=== PATIENT | female | born 1975 | race Hispanic/Latino ===

== ENCOUNTER 2016-11-07 11:30 | Emergency (ER) | payer OTHER ==
[~2016-11-07] VITALS: Ht 152.4 cm; Wt 68.0 kg
[~2016-11-07 11:30] MED LIST: ACHD5005 PO; ASPI-266 PO; FERR-57 PO; FRS325T PO; GLYB2.5T4 PO; IBP600T1 PO; PREN1TAB71 PO
--- OUTSIDE RECORDS SUMMARY | 2016-11-07 11:36 | XMS REPORT | Continuity of Care Document ---
Author Author [facility] Organization [facility] Address Unknown Phone Unavailable Care Team Providers Care Spanish Speaking Nanny Name Role Phone LAURENCE AHMADI DO PCP Insurance Providers Payer Name Policy Number Subscriber Name Relationship Self Pay Gaurav Lawson 18 Self / Same As Patient Advance Directives Directive Response Recorded Date/Time Advance Directives No 02/23/15 7:15am Health Care Power of Ore Dryer No 02/23/15 7:15am Organ Donor No 02/23/15 7:15am Resuscitation Status Full Code 02/23/15 7:15am Problems No known problems or medical conditions. Medications Medication Dose Route Sig Days/Qty Instructions Order Date Discontinued Date Status Ferrous Sulfate 325 Mg PO THREE TIMES A DAY 02/23/15 02/26/15 Discontinued Glyburide (Micronase) 1 Each PO DAILY 02/23/15 02/26/15 Discontinued Aspirin 81 Mg PO DAILY 02/23/15 02/26/15 Discontinued Vit/Fe Fumarate/Fa 1 Each PO DAILY 02/23/15 Active Acetaminophen/Hydrocodone Bitart (Hydrocodone/APAP 5/325mg) 1-2 Tab PO EVERY 6 HOURS PRN PAIN 50 Qty 02/26/15 Active Ibuprofen 600 Mg PO EVERY 6 HOURS PRN PAIN 60 Qty 02/26/15 Active Ferrous Sulfate 325 Mg PO TWICE A DAY WITH MEALS 120 Qty 02/26/15 Active Social History Social History Problem Response Recorded Date/Time Alcohol Use Denies Use 02/23/2015 9:52am Recreational Drug Use No 02/23/2015 9:52am Recent Foreign Travel No 02/23/2015 9:52am Recent Infectious Disease Exposure No 02/23/2015 9:52am Hospitalization with Isolation Denies 02/27/2015 12:40am Sexually Transmitted Disease No 02/23/2015 9:52am HIV/AIDS No 02/23/2015 9:52am Smoking Status Former Smoker 02/23/2015 9:26am Do you dip or chew tobacco? No 02/23/2015 9:26am Query Response Start Date Stop Date Smoking Status Former Smoker 08/29/2014 Hospital Discharge Instructions Patient Instructions Physician Instructions New, Converted or Re-Newed RX: RX on Chart Additional Follow Up: Yes Orders/Referrals Follow up with Dr. Ahmadi next Tuesday for staple removal and incision check. Dr. Durand in 6 weeks. Activity: Activity as Tolerated Driving Instructions: No Driving for 1 Week NO SMOKING: NO SMOKING Nothing Inside Vagina: No Douching, No [place], No Tampons Discharge Diet: No Restrictions, Avoid Fatty Foods Symptoms to Report to : Bleeding Excessive, Pain Increased, Fever Over 101 Degrees F, Vaginal Bleeding Increase, Questions/Concerns, Dizziness/Fainting For Any Problems or Questions: Contact Your Physician Infection Signs and Symptoms: Increased Redness, Foul Odor of Wound, Increased Drainage, Skin Itchy or Has a Rash, Increased Swelling, Temperature Above 101 F Operative Area Clean and Dry: Keep Incision Clean/Dry Stitches/[place]/Dermabond: Care of [place] Bathing Instructions: Shower Plan of Care Discharge Date 02/26/15 11:50pm Disposition 30 STILL A PATIENT Instructions/Education Provided DISCHARGE SECTION DISCHARGE Abdominal Hysterectomy (DC) Forms Provided PDI Prescriptions See Medications Section Functional Status No functional status results. Allergies, Adverse Reactions, Alerts Allergen Type Severity Reaction Status Last Updated No Known Drug Allergies Active 02/23/15 Immunizations Name Given Type Date of Influenza Vaccine 08/12/14 Historical Hepatitis A No Historical Hepatitis B Yes Historical Tetanus Booster (TDap) Less than 5yrs Historical Vital Signs Acute Vital Signs Vital Response Date/Time Temperature (Fahrenheit) 98.2 degrees F (97.6 - 99.5) Temperature (Calculated Celsius) 36.06066 degrees C (36.4 - 37.5) Temperature Source Tympanic Pulse Rate (adult) 75 bpm (60 - 90) Respiratory Rate 18 bpm (12 - 24) O2 Sat by Pulse Oximetry 98 % (88 - 100) Blood Pressure 100/62 mm Hg Pain Pain Intensity 0 Height (Feet) 5 feet Height (Inches) 0.00 inches Height (Calculated Centimeters) 152.403958 cm Weight (Pounds) 175 pounds Weight (Calculated Grams) 71307.666 gm Weight (Calculated Kilograms) 79.255954 kilograms Calculated BMI 34.17 Results Laboratory Results Test Name Result Units Flags Reference Collection Date/Time Result Date/ Time Comments White Blood Count 11.2 10^3/uL H 4.3-11.0 02/26/2015 1:20pm 02/26/2015 1: 46pm Red Blood Count 3.79 10^6/uL L 4.35-5.85 02/26/2015 1:20pm 02/26/2015 1: 46pm Hemoglobin 9.3 G/DL #L 11.5-16.0 02/26/2015 1:20pm 02/26/2015 1:46pm Hematocrit 29 % L 35-52 02/26/2015 1:20pm 02/26/2015 1:46pm Mean Corpuscular Volume 76 FL L 80-99 02/26/2015 1:20pm 02/26/2015 1: 46pm Mean Corpuscular Hemoglobin 25 PG 25-34 02/26/2015 1:20pm 02/26/2015 1: 46pm Mean Corpuscular Hemoglobin Concent 32 G/DL 32-36 02/26/2015 1:20pm 08/2014 1:46pm Red Cell Distribution Width 20.8 % H 10.0-14.5 02/26/2015 1:20pm 2014 1:46pm Platelet Count 148 10^3/uL 130-400 02/26/2015 1:20pm 02/26/2015 1:46pm Mean Platelet Volume 12.2 FL H 7.4-10.4 02/26/2015 1:20pm 02/26/2015 1: 46pm Neutrophils (%) (Auto) 69 % 42-75 02/26/2015 1:20pm 02/26/2015 1:46pm Lymphocytes (%) (Auto) 24 % 12-44 02/26/2015 1:20pm 02/26/2015 1:46pm Monocytes (%) (Auto) 5 % 0-12 02/26/2015 1:20pm 02/26/2015 1:46pm Eosinophils (%) (Auto) 2 % 0-10 02/26/2015 1:20pm 02/26/2015 1:46pm Basophils (%) (Auto) 0 % 0-10 02/26/2015 1:20pm 02/26/2015 1:46pm Neutrophils # (Auto) 7.7 X 10^3 1.8-7.8 02/26/2015 1:20pm 02/26/2015 1: 46pm Lymphocytes # (Auto) 2.7 X 10^3 1.0-4.0 02/26/2015 1:20pm 02/26/2015 1: 46pm Monocytes # (Auto) 0.5 X 10^3 0.0-1.0 02/26/2015 1:20pm 02/26/2015 1: 46pm Eosinophils # (Auto) 0.3 10^3/uL 0.0-0.3 02/26/2015 1:20pm 02/26/2015 1 :46pm Basophils # (Auto) 0.0 10^3/uL 0.0-0.1 02/26/2015 1:20pm 02/26/2015 1: 46pm Neutrophils % (Manual) 76 % 02/23/2015 8:02/23/2015 9:49am Band Neutrophils 18 % 02/23/2015 8:02/23/2015 9:49am Lymphocytes % (Manual) 2 % 02/23/2015 8:02/23/2015 9:49am Monocytes % (Manual) 3 % 02/23/2015 8:02/23/2015 9:49am Eosinophils % (Manual) 0 % 02/23/2015 8:02/23/2015 9:49am Basophils % (Manual) 0 % 02/23/2015 8:02/23/2015 9:49am Metamyelocytes % 1 % 02/23/2015 8:02/23/2015 9:49am Nucleated Red Blood Cells 1 02/23/2015 8:02/23/2015 9:49am Polychromasia SLIGHT 02/23/2015 8:02/23/2015 9:49am Anisocytosis MARKED 02/23/2015 8:02/23/2015 9:49am Microcytosis MARKED 02/23/2015 8:11am 02/23/2015 9:49am Tear Drop Cells MODERATE 02/23/2015 8:11am 02/23/2015 9:49am Elliptocytes MODERATE 02/23/2015 8:11am 02/23/2015 9:49am Prothrombin Time 11.8 SEC L 12.2-14.7 02/26/2015 7:37am 02/26/2015 7: 59am INR Comment 0.9 0.8-1.4 02/26/2015 7:37am 02/26/2015 7:59am INTERPRETIVE DATA SUGGESTED THERAPEUTIC RANGE FOR INR'S: VENOUS THROMBOSIS, PULMONARY EMBOLISM, OR PREVENTION OF SYSTEMIC EMBOLISM (EG. IN ATRIAL FIBRILLATION): 2.0 - 3.0 MECHANICAL PROSTHETIC HEART VALVES: 2.5 - 3.5* *NOTE: INR'S UP TO 4.5 MAY BE NECESSARY IN SELECTED GROUPS OF HIGH RISK PATIENTS. [employer] CONSENSUS CONFERENCE ON ANTITHROMBOTIC THERAPY (2000). Fibrinogen 514 MG/DL H 221-496 02/26/2015 7:37am 02/26/2015 8:33am Urine Color YELLOW 02/23/2015 7:20am 02/23/2015 8:07am Urine Clarity CLEAR 02/23/2015 7:20am 02/23/2015 8:07am Urine pH 6 5-9 02/23/2015 7:20am 02/23/2015 8:07am Urine Specific Bear 1.020 1.016-1.022 02/23/2015 7:20am 2014 8:07am Urine Protein 2+ * NEGATIVE 02/23/2015 7:2002/23/2015 8:07am Urine Glucose (UA) NEGATIVE NEGATIVE 02/23/2015 7:20am 02/23/2015 8: 07am Urine RBC (Auto) 4+ * NEGATIVE 02/23/2015 7:20am 02/23/2015 8:07am Urine Ketones NEGATIVE NEGATIVE 02/23/2015 7:20am 02/23/2015 8:07am Urine Nitrite NEGATIVE NEGATIVE 02/23/2015 7:20am 02/23/2015 8:07am Urine Bilirubin NEGATIVE NEGATIVE 02/23/2015 7:20am 02/23/2015 8: 07am Urine Urobilinogen NORMAL MG/DL NORMAL 02/23/2015 7:20am 02/23/2015 8: 07am Urine Leukocyte Esterase 1+ * NEGATIVE 02/23/2015 7:20am 02/23/2015 8: 07am Urine RBC 0-2 /HPF 02/23/2015 7:2002/23/2015 8:07am Urine WBC 0-2 /HPF 02/23/2015 7:20am 02/23/2015 8:07am Urine Bacteria TRACE /HPF 02/23/2015 7:20am 02/23/2015 8:07am Urine Squamous Epithelial Cells 25-50 /HPF * 02/23/2015 7:20am 2014 8:07am Urine Crystals NONE /LPF 02/23/2015 7:20am 02/23/2015 8:07am Urine Casts NONE /LPF 02/23/2015 7:20am 02/23/2015 8:07am Urine Mucus NEGATIVE /LPF 02/23/2015 7:20am 02/23/2015 8:07am Urine Culture Indicated NO 02/23/2015 7:2002/23/2015 8:07am Sodium Level 139 MMOL/L 135-145 02/23/2015 8:02/23/2015 9:36am Potassium Level 3.8 MMOL/L 3.6-5.0 02/23/2015 8:02/23/2015 9:36am Chloride Level 112 MMOL/L H 98-107 02/23/2015 8:02/23/2015 9:36am Carbon Dioxide Level 17 MMOL/L L 21-32 02/23/2015 8:02/23/2015 9: 36am Blood Urea Nitrogen 8 MG/DL 7-18 02/23/2015 8:02/23/2015 9:36am Creatinine 0.57 MG/DL L 0.60-1.30 02/23/2015 8:02/23/2015 9:36am BUN/Creatinine Ratio 14 02/23/2015 8:02/23/2015 9:36am Estimat Glomerular Filtration Rate > 60 02/23/2015 8:2014 9:36am GFR INTERPRETIVE DATA UNITS FOR ESTIMATED GFR (eGFR): mL/min/1.73 M2 REFERENCE RANGE FOR ESTIMATED GFR (eGFR) eGFR NORMAL eGFR >60 MODERATELY DECREASED eGFR 30-59 SEVERLY DECREASED eGFR 15-29 KIDNEY FAILURE <15 (OR DIALYSIS) Glucose Level 71 MG/DL 70-105 02/23/2015 8:11a02/23/2015 9:36am Glucometer 121 MG/DL H 70-110 02/25/2015 9:57pm 02/25/2015 10:05pm Calcium Level 8.9 MG/DL 8.5-10.1 02/23/2015 8:11a02/23/2015 9:36am Total Bilirubin 0.6 MG/DL 0.1-1.0 02/23/2015 8:11a02/23/2015 9:36am Alkaline Phosphatase 193 U/L H 40-136 02/23/2015 8:11a02/23/2015 9: 36am Aspartate Amino Transf (AST/SGOT) 20 U/L 5-34 02/23/2015 8:2014 9:36am Alanine Aminotransferase (ALT/SGPT) 11 U/L 0-55 02/23/2015 8:11a02/23 9:36am Total Protein 6.5 G/DL 6.4-8.2 02/23/2015 8:02/23/2015 9:36am Albumin 3.0 G/DL L 3.2-4.5 02/23/2015 8:11a02/23/2015 9:36am Procedures Procedure Status Date Provider(s) section completed 02/23/15 LAURENCE AHMADI DO Exploratory laparotomy completed 02/23/15 LAURENCE AHMADI DO Encounters Encounter Location Date/Time Discharged Inpatient Via [facility] 02/23/15 4:28pm
[2016-11-07] MEDS ORDERED: VALA10004 PO (12:04)
[2016-11-07] MEDS ORDERED: TRAM-42 PO (12:04)
[2016-11-07] MEDS ORDERED: AMOX-358 PO (12:04)
[2016-11-07] MEDS ORDERED: ACYC30OI TP (12:04)
--- NOTE | 2016-11-07 12:07 | ED EENT ---
History of Present Illness General Chief Complaint: Facial Problems Stated Complaint: R SIDE FACE SWELLING/SORE ON LIP Nursing Triage Note: PT REPORTS THAT SHE HAD A R LOWER MOLAR EXTRACTED UNDER LOCAL ANESTHETIC ON Tuesday11/04/16, AND HAS HAD R SIDED FACIAL PAIN WITH INTERMITTENT NUMBNESS SINCE. SHE ALSO REPORTS WHAT APPEARS TO BE A COLD SORE TO HER R UPPER LIP. Source: patient (VIA LARD RENDERER ( DAUGHTER) ), debt collection specialist (DAUGHTER) History of Present Illness Time seen by provider: 11:50 Initial Comments C/O RIGHT SIDED FACIAL PAIN SINCE HAVING A RIGHT LOWER MOLAR PULLED ON Tuesday11/04/16 AT [facility] PT ALSO DEVELOPED A SORE ON RIGHT UPPER LIP THE SAME DAY. NOW IS STARTING TO GET ANOTHER ONE ON MID UPPER LIP--HAS HAD SIMILAR IN THE PAST HAS NOT BEEN ON ANY ANTIBIOTICS RECENTLY HAS HAD SUBJECTIVE FEVER NO OTHER SYMPTOMS PCP: [facility] Allergies and Home Medications Allergies Coded Allergies: No Known Drug Allergies (Unverified , 02/23/15) Home Medications Acyclovir 30 Gm Oint #1 30 GM TP Q4H Prescribed by: JACQUI GREENE on 11/07/16 1204 Amoxicillin/Potassium Clav 1 Each Tablet #20 1 EACH PO BID Prescribed by: JACQUI GREENE on 11/07/16 1204 Ferrous Sulfate 325 Mg Tab #120 325 MG PO BID WITH MEALS Prescribed by: LAURENCE JACKSON on 02/26/15 0734 Hydrocodone Bit/Acetaminophen 1 Tab Tab #50 1-2 TAB PO Q6H PRN PRN PAIN Prescribed by: LAURENCE JACKSON on 02/26/15 0734 Ibuprofen 600 Mg Tab #60 600 MG PO Q6H PRN PRN PAIN Prescribed by: LAURENCE JACKSON on 02/26/15 0734 Vit/Fe Fumarate/Fa 1 Each Tablet 1 EACH PO DAILY (Reported) Tramadol HCl 50 Mg Tablet #20 50 MG PO Q4H Prescribed by: JACQUI GREENE on 11/07/16 1204 Valacyclovir HCl 1,000 Mg Tablet #30 1,000 MG PO TID Prescribed by: JACQUI GREENE on 11/07/16 1204 Review of Systems Constitutional: see HPI Eyes: No Symptoms Reported Ears: No Symptoms Reported Nose: no symptoms reported Mouth: see HPI Throat: no symptoms reported Respiratory: no symptoms reported Cardiovascular: no symptoms reported Gastrointestinal: no symptoms reported Musculoskeletal: no symptoms reported Skin: see HPI Neurological: No Symptoms Reported Hematologic/Lymphatic: No Symptoms Reported Immunological/Allergic: no symptoms reported Past Qrgzbnz-Yumisk-Puflxl Hx Patient Social History Alcohol Use: Denies Use Recreational Drug Use: No Smoking Status: Current Everyday Smoker Type Used: Cigarettes 2nd Hand Smoke Exposure: No Recent Foreign Travel: No Contact w/Someone Who Travel: No Recent Infectious Disease Expo: No Recent Hopitalizations: No Immunizations Up To Date Tetanus Booster (TDap): Less than 5yrs PED Vaccines UTD: Yes Date of Influenza Vaccine: Aug 12, 2014 Surgeries HX Surgeries: Yes (TEETH PULLED) Surgeries: Section Respiratory Hx Respiratory Disorders: No Cardiovascular Hx Cardiac Disorders: No Neurological Hx Neurological Disorders: No Reproductive System Hx Reproductive Disorders: No Sexually Transmitted Disease: No HIV/AIDS: No Female Reproductive Disorders: Denies Genitourinary Hx Genitourinary Disorders: No Gastrointestinal Hx Gastrointestinal Disorders: No Musculoskeletal Hx Musculoskeletal Disorders: No Endocrine Hx Endocrine Disorders: No Endocrine Disorders: Diabetes, Non-Insulin dep HEENT HX ENT Disorders: No Loss of Vision: Denies Hearing Impairment: Denies Cancer Hx Cancer: No Psychosocial Hx Psychiatric Problems: No Integumentary HX Skin/Integumentary Disorder: No Blood Transfusions Hx Blood Disorders: Yes (ANEMIA) Adverse Reaction to a Blood Tr: No Family Medical History Family Medial History: Deafness or hearing loss DAUGHTER Diabetes mellitus G8 SISTER (IDDM AGE 35 YR) Drug abuse G8 BROTHER Kidney disease G8 SISTER Seizure disorder DAUGHTER No Family History of: AIDS Abdominal aortic aneurysm Luca's disease Alcoholism Alzheimer's disease Aphasia Arthritis Asthma Cancer of mouth Cardiovascular disease Cataracts Colon cancer Completed stroke Congenital disease Congenital heart disease Coronary thrombosis Cystic fibrosis Dementia Dysphasia Fibrocystic disease of breast Gastroenteritis Glaucoma Headache disorder Hypercholesterolemia Hypertension Infertility Myocardial infarction Neoplasm Not obtainable due to adoption Osteoporosis Parkinson's disease Prostate cancer Psychosocial problem Respiratory disorder Severe allergy Thyroid disease Tuberculosis Visual disorder Physical Exam Vital Signs Vital Sign - Last 12Hours 11/07/16 11:35 Temp 97.9 Pulse 52 Resp 16 B/P 128/65 Pulse Ox 98 O2 Delivery Room Air General Appearance: WD/WN no apparent distress Eyes: bilateral eye EOMI, bilateral eye PERRL, bilateral eye normal inspection Ears: bilateral ear TM normal, bilateral ear auricle normal, bilateral ear canal normal Nose: normal inspection Mouth/Throat: other (DENTAL EXTRACTION SITE TO RIGHT LOWER MOLAR APPEARS TO HAVE NORMAL POST EXTRACTION APPEARANCE. NO GUM SWELLING OR ERYTHEMA. NO DRAINAGE. RIGHT SIDE OF FACE SLIGHTLY TENDER, BUT NO EVIDENCE OF SWELLING. 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 Referrals: [facility] Patient Instructions: Cold Sores (Oral Herpes) (DC), Dental Pain (DC) Add. Discharge Instructions: ICE TO AREA AT 20 MINUTE INTERVALS LOTS OF CLEAR LIQUIDS FOLLOW UP WITH [facility] IN 2-3 DAYS IF NO BETTER All discharge instructions reviewed with patient and/or family. Voiced understanding. Scripts Acyclovir (Zovirax)30 Gm Oint30 Gm TP Q4H #1 TUBE Prov:JACQUI GREENE DO 11/07/16 Valacyclovir HCl (Valtrex)1,000 Mg Tablet1,000 Mg PO TID #30 TAB Prov:JACQUI GREENE DO 11/07/16 Tramadol HCl (Ultram)50 Mg [id number] Mg PO Q4H #20 TAB Prov:JACQUI GREENE DO 11/07/16 Amoxicillin/Potassium Clav (Augmentin 875-125 Tablet)1 Each Tablet1 Each PO BID INFECTION #20 TAB Prov:JACQUI GREENE DO 11/07/16 JACQUI GREENE DO Nov 07, 2016 12:06
[2016-11-07 12:47] VITALS: BP 128/65
== END 2016-11-07 12:47 | disposition home or self-care (01) ==
LOC: EDUNIT# 11:30 → ER 11:32
DX: G89.18 Other acute postprocedural pain (principal); B00.1 Herpesviral vesicular dermatitis; F17.210 Nicotine dependence, cigarettes, uncomplicated
CPT/HCPCS: 99283

== ENCOUNTER → 2018-08-04 | Outpatient (CLI) | payer OTHER ==
[~2018-08-04] MED LIST changes: +ACYC30OI TP; +AMOX-358 PO; +IOHEXOL 350 MG/ML 100 ML (OMNIPAQUE 350) VIAL IV ONE; +NS 250 ML (IVPB) BAG IV ONE; +RECEIVED CONTRAST (Hold Metformin) IV SCH; +TRAM-42 PO; +VALA10004 PO
--- NOTE | 2018-08-04 09:37 | Diagnostic Imaging Report ---
PROCEDURE: CT abdomen and pelvis with contrast. TECHNIQUE: Multiple contiguous axial images were obtained through the abdomen and pelvis after administration of intravenous contrast. INDICATION: Abdominal pain for one week. COMPARISON: Comparison is made with prior CT from 02/22/2012. FINDINGS: There is some linear scarring or atelectasis in the lingula. There is also some minimal infiltrate or atelectasis in the right lower lobe posteriorly. There are several low densities throughout the liver, largest in the right lobe anteriorly which appears to be somewhat bilobed measuring 2.3 x 1.6 cm. This has the appearance of cysts. Cysts have increased in size since the CT from 2011. The gallbladder is unremarkable. No biliary ductal dilatation is seen. Pancreas and spleen are unremarkable. No adrenal mass is detected. The kidneys are unremarkable. Aorta is non-aneurysmal. No central retroperitoneal or mesenteric lymphadenopathy is identified. The small and large bowel loops are normal in caliber. There is no ascites. The bladder is unremarkable. No pelvic lymphadenopathy is seen. IMPRESSION: 1. Hepatic cysts. 2. No acute feature in the abdomen or pelvis is identified. Dictated by: Dictated on workstation # [id number]
== END ==
LOC: RAD 08:44
PROVIDERS: ATTEND Nurse Practitioner Family
DX: K76.89 Other specified diseases of liver (principal); D64.9 Anemia, unspecified
CPT/HCPCS: 74177

== ENCOUNTER 2018-09-27 21:51 | Emergency (ER) | payer SELFPAY ==
[~2018-09-27] VITALS: Ht 152.4 cm; Wt 68.0 kg
[~2018-09-27 21:51] MED LIST changes: -IOHEXOL 350 MG/ML 100 ML (OMNIPAQUE 350) VIAL IV ONE; -NS 250 ML (IVPB) BAG IV ONE; -RECEIVED CONTRAST (Hold Metformin) IV SCH
--- NOTE | 2018-09-27 22:04 | ED GU-Female ---
General Chief Complaint: Abdominal/GI Problems Stated Complaint: LOWER ABD PAIN Nursing Triage Note: lower abdominal pain Nursing Sepsis Screen: No Definite Risk Source: patient, family Exam Limitations: language barrier (Bengali as a second language. Interpretation by family) History of Present Illness Date Seen by Provider: Sep 27, 2018 Time Seen by Provider: 21:53 Initial Comments Patient presents to ER by private conveyance with chief complaint for the past 3 -4 months she's been having some intermittent bilateral pain in her illness. Right now it is more in the left than right. She also has some suprapubic pain and discomfort when she urinates. She's had no fevers chills nausea vomiting. She's been using ibuprofen which usually helps but not so much today. This latest episode been going on for 1 day. She had a hysterectomy secondary to bleeding complications after with her last child. She does not follow with a ultrasound technol that she has seen Dr. Price outpatient for this and imaging was ordered demonstrating the patient had ovarian cysts. She's had no other abdominal surgeries. Allergies and Home Medications Allergies Coded Allergies: No Known Drug Allergies (Unverified , 02/23/15) Patient Home Medication List Home Medication List Reviewed: Yes Review of Systems Review of Systems Constitutional: No chills, No diaphoresis EENTM: No ear discharge, No ear pain Respiratory: No cough, No short of breath Cardiovascular: No chest pain, No edema Gastrointestinal: LLQ, see HPI, abdominal pain; No constipation (last bowel movement was this morning.), No diarrhea, No nausea Genitourinary: denies discharge, denies dysuria : No Musculoskeletal: No back pain, No joint pain Skin: No pruritus, No rash Past Dbltefs-Jjzors-Vprdua Hx Patient Social History Alcohol Use: Denies Use Recreational Drug Use: No Smoking Status: Current Everyday Smoker Type Used: Cigarettes 2nd Hand Smoke Exposure: No Recent Foreign Travel: No Contact w/Someone Who Travel: No Recent Infectious Disease Expo: No Recent Hopitalizations: No Immunizations Up To Date Tetanus Booster (TDap): Less than 5yrs PED Vaccines UTD: Yes Date of Influenza Vaccine: Aug 12, 2014 Seasonal Allergies Seasonal Allergies: No Past Medical History Surgeries: Yes (TEETH PULLED) Section, Hysterectomy Respiratory: No Cardiac: No Neurological: No : No Reproductive Disorders: No Female Reproductive Disorders: Denies QA TESTER History: Hysterectomy Sexually Transmitted Disease: No HIV/AIDS: No Genitourinary: No Gastrointestinal: No Musculoskeletal: No Endocrine: No Diabetes, Non-Insulin dep HEENT: No Loss of Vision: Denies Hearing Impairment: Denies Cancer: No Psychosocial: No Integumentary: No Blood Disorders: Yes (ANEMIA) Adverse Reaction/Blood Tranf: No Family Medical History Deafness or hearing loss DAUGHTER Diabetes mellitus G8 SISTER (IDDM AGE 35 YR) Drug abuse G8 BROTHER Kidney disease G8 SISTER Seizure disorder DAUGHTER No Family History of: AIDS Abdominal aortic aneurysm [place]'s disease Alcoholism Alzheimer's disease Aphasia Arthritis Asthma Cancer of mouth Cardiovascular disease Cataracts Colon cancer Completed stroke Congenital disease Congenital heart disease Coronary thrombosis Cystic fibrosis Dementia Dysphasia Fibrocystic disease of breast Gastroenteritis Glaucoma Headache disorder Hypercholesterolemia Hypertension Infertility Myocardial infarction Neoplasm Not obtainable due to adoption Osteoporosis Parkinson's disease Prostate cancer Psychosocial problem Respiratory disorder Severe allergy Thyroid disease Tuberculosis Visual disorder Physical Exam Vital Signs Vital Signs - First Documented 09/27/18 21:54 Temp 96.3 Pulse 69 Resp 16 B/P (MAP) 137/78 (97) Pulse Ox 99 O2 Delivery Room Air Capillary Refill : Less Than 3 Seconds Height, Weight, BMI Height: 5'0.00" Weight: 150lbs. oz. 68.259507ce; 34.17 BMI Method:Estimated General Appearance: WD/WN, no apparent distress HEENT: PERRL/EOMI, pharynx normal Neck: non-tender, full range of motion, normal inspection Cardiovascular: normal peripheral pulses, regular rate, rhythm, no edema Respiratory: no respiratory distress, no accessory muscle use Gastrointestinal: normal bowel sounds, soft, tenderness (left lower quadrant mild tenderness to palpation) Extremities: no pedal edema, no calf tenderness, normal capillary refill Neurologic/Psychiatric: alert, normal mood/affect, oriented x 3 Progress/Results/Core Measures Suspected Sepsis Recent Fever Within 48 Hours: No Infection Criteria Present: None New/Unexplained Altered Menta: No Sepsis Screen: No Definite Risk SIRS Temperature:96.3 Pulse: 69 Respiratory Rate: 16 Laboratory Tests 09/27/18 22:26: White Blood Count 13.8H Blood Pressure 137 /78 Mean: 97 Laboratory Tests 09/27/18 22:26: Creatinine 0.84, Platelet Count 233 Results/Orders Lab Results Laboratory Tests Test 09/27/18 22:00 09/27/18 22:26 Range/Units Urine Color YELLOW Urine Clarity CLEAR Urine pH 7 5-9 Urine Specific [place] 1.010 L 1.016-1.022 Urine Protein NEGATIVE NEGATIVE Urine Glucose (UA) NEGATIVE NEGATIVE Urine Ketones NEGATIVE NEGATIVE Urine Nitrite NEGATIVE NEGATIVE Urine Bilirubin NEGATIVE NEGATIVE Urine Urobilinogen NORMAL NORMAL MG/DL Urine Leukocyte Esterase NEGATIVE NEGATIVE Urine RBC (Auto) 2+ H NEGATIVE Urine RBC 2-5 H /HPF Urine WBC RARE /HPF Urine Crystals NONE /LPF Urine Bacteria NONE /HPF Urine Casts NONE /LPF Urine Mucus NEGATIVE /LPF Urine Culture Indicated NO White Blood Count 13.8 H 4.3-11.0 10^3/uL Red Blood Count 4.78 4.35-5.85 10^6/uL Hemoglobin 10.1 L 11.5-16.0 G/DL Hematocrit 30 L 35-52 % Mean Corpuscular Volume 62 L 80-99 FL Mean Corpuscular Hemoglobin 21 L 25-34 PG Mean Corpuscular Hemoglobin Concent 34 32-36 G/DL Red Cell Distribution Width 15.9 H 10.0-14.5 % Platelet Count 233 130-400 10^3/uL Mean Platelet Volume 7.4-10.4 FL Neutrophils (%) (Auto) 49 42-75 % Lymphocytes (%) (Auto) 39 12-44 % Monocytes (%) (Auto) 8 0-12 % Eosinophils (%) (Auto) 4 0-10 % Basophils (%) (Auto) 0 0-10 % Neutrophils # (Auto) 6.8 1.8-7.8 X 10^3 Lymphocytes # (Auto) 5.3 H 1.0-4.0 X 10^3 Monocytes # (Auto) 1.1 H 0.0-1.0 X 10^3 Eosinophils # (Auto) 0.5 H 0.0-0.3 10^3/uL Basophils # (Auto) 0.1 0.0-0.1 10^3/uL Sodium Level 136 135-145 MMOL/L Potassium Level 3.8 3.6-5.0 MMOL/L Chloride Level 107 98-107 MMOL/L Carbon Dioxide Level 23 21-32 MMOL/L Anion Gap 6 5-14 MMOL/L Blood Urea Nitrogen 11 7-18 MG/DL Creatinine 0.84 0.60-1.30 MG/DL Estimat Glomerular Filtration Rate > 60 BUN/Creatinine Ratio 13 Glucose Level 99 70-105 MG/DL Calcium Level 9.1 8.5-10.1 MG/DL My Orders Orders - MAURI GORDON Ua Culture If Indicated (09/27/18 22:02) Ketorolac Injection (Toradol Injection) (09/27/18 22:15) Cbc With Automated Diff (09/27/18 22:17) Basic Metabolic Panel (09/27/18 22:17) Medications Given in ED Current Medications Medications Dose Ordered Sig/Maya Route Start Time Stop Time Status Last Admin Dose Admin Ketorolac Tromethamine 30 mg ONCE ONCE IM 09/27/18 22:15 09/27/18 22:16 DC 09/27/18 22:08 30 MG Vital Signs/I&O 09/27/18 09/27/18 21:54 22:08 Temp 96.3 96.3 Pulse 69 Resp 16 B/P (MAP) 137/78 (97) Pulse Ox 99 O2 Delivery Room Air Capillary Refill : Less Than 3 Seconds Blood Pressure Mean: 97 Progress Note #1: Time: 22:15 Progress Note Patient's having any new onset of left lower quadrant abdominal pain without diarrhea or evidence of colitis. Her vital signs and clinical exam or aseptic and unremarkable. No acute abdomen. She does have a known history of ovarian cysts. His been going on 3 months and she had started some outpatient workup and no follow-up yet. Recommend she follow up with primary care or [employer]. We will give her some Toradol and check some urine since she's having some suprapubic tenderness. cbc bmp Progress Note #2: Time: 23:06 Progress Note The patient's pain has resolved with some Toradol. Her marginal elevated white count could be from an ruptured ovarian cyst. Recommend she follow up with a ultrasound technol. We do not have ultrasound available tonight. I don't think a CT scan is going to show that we need to see in her pelvis. We have offered her transfer to a facility with ultrasound versus following up outpatient and since her pain is under control she would prefer to do this outpatient which I think would be totally appropriate. Departure Impression Primary Impression: Ovarian cyst Qualified Codes: N83.202 - Unspecified ovarian cyst, left side Disposition: 01 HOME, SELF-CARE Condition: Improved Departure-Patient Inst. Decision time for Depature: 23:07 Referrals: NO,LOCAL PHYSICIAN (PCP/Family) Primary Care Physician Patient Instructions: LOCAL PHYSICIAN LIST, Ovarian Cyst (DC) Add. Discharge Instructions: Drink plenty of fluids and use Tylenol 1000 mg every 8 hours as well as Naprosyn /Aleve one to 2 tablets twice a day for pain. Naprosyn would replace ibuprofen as they are in the same class but it is more potent and lasts longer. Follow-up with a ultrasound technol or your primary care provider. All discharge instructions reviewed with patient and/or family. Voiced understanding. MAURI GORDON Sep 27, 2018 22:04
[2018-09-27 22:11] LABS: BILIRUBIN,URINE NEGATIVE (NEGATIVE); CLARITY,URINE CLEAR; COLOR,URINE YELLOW; GLUCOSE, URINE (UA) NEGATIVE (NEGATIVE); KETONES,URINE NEGATIVE (NEGATIVE); LEUKOCYTE ESTERASE ,URINE NEGATIVE (NEGATIVE); NITRITE,URINE NEGATIVE (NEGATIVE); PH,URINE 7 (5-9); PROTEIN,URINE NEGATIVE (NEGATIVE); UROBILINOGEN,URINE NORMAL (NORMAL)
[2018-09-27] MEDS ORDERED: KETOROLAC 30 MG/ML VIAL IM ONE (22:15)
[2018-09-27 22:33] LABS: WBC,URINE RARE /HPF
[2018-09-27 22:33] LABS: BASOPHILS # (AUTO) 0.1 10^3/uL (0.0-0.1); BASOPHILS % (AUTO) 0 % (0-10); EOSINOPHILS # (AUTO) 0.5 10^3/uL (0.0-0.3); EOSINOPHILS % (AUTO) 4 % (0-10); HEMATOCRIT 30 % (35-52); HEMOGLOBIN 10.1 G/DL (11.5-16.0); LYMPHOCYTES # (AUTO) 5.3 X 10^3 (1.0-4.0); LYMPHOCYTES % (AUTO) 39 % (12-44); MEAN CORPUSCULAR HEMOGLOBIN 21 PG (25-34); MEAN CORPUSCULAR HGB CONC 34 G/DL (32-36); MEAN CORPUSCULAR VOLUME 62 FL (80-99); MONOCYTES # (AUTO) 1.1 X 10^3 (0.0-1.0); MONOCYTES % (AUTO) 8 % (0-12); NEUTROPHILS # (AUTO) 6.8 X 10^3 (1.8-7.8); NEUTROPHILS % (AUTO) 49 % (42-75); PLATELET COUNT 233 10^3/uL (130-400); RED CELL DISTRIBUTION WIDTH 15.9 % (10.0-14.5); WHITE BLOOD COUNT 13.8 10^3/uL (4.3-11.0)
[2018-09-27 23:01] LABS: BUN/CREATININE RATIO 13; CALCIUM 9.1 MG/DL (8.5-10.1); CARBON DIOXIDE 23 MMOL/L (21-32); CHLORIDE 107 MMOL/L (98-107); CREATININE SERUM 0.84 MG/DL (0.60-1.30); GFR ESTIMATED > 60; GLUCOSE 99 MG/DL (70-105); POTASSIUM 3.8 MMOL/L (3.6-5.0); SODIUM 136 MMOL/L (135-145)
[2018-09-27 23:10] VITALS: BP 125/74
== END 2018-09-27 23:12 | disposition home or self-care (01) ==
LOC: EDUNIT# 21:51 → ER 21:52
DX: N83.202 Unspecified ovarian cyst, left side (principal); E11.9 Type 2 diabetes mellitus without complications; D64.9 Anemia, unspecified; F17.210 Nicotine dependence, cigarettes, uncomplicated; Z90.710 Acquired absence of both cervix and uterus; Z98.890 Other specified postprocedural states
CPT/HCPCS: 36415; 80048; 81000; 85025

== ENCOUNTER → 2018-10-27 | Outpatient (CLI) | payer OTHER ==
--- NOTE | 2018-10-27 11:53 | Diagnostic Imaging Report ---
EXAMINATION: Pelvic ultrasound. INDICATION: Pelvic pain. FINDINGS: There are no prior pelvic ultrasound examinations available for comparison. The CT abdomen/pelvis exam performed on 08/04/2018 failed to show any sign of an acute abnormality. The uterus was not identified on the previous CT exam and by history, the patient did undergo a hysterectomy in 2014. Both ovaries were identified. There is good blood flow to each ovary and there is no sign of torsion. There is a 0.9 x 3.9 cm hypoechoic area with a few internal echoes associated with the left ovary. This may represent small ovarian cyst which has been complicated by infection and/or hemorrhage. There are few subcentimeter follicles on the right ovary. There is no solid pelvic mass or free fluid collection evident. IMPRESSION: 1. There appears to be a small 0.9 x 3.9 cm slightly complicated cyst associated with the left ovary. There is no acute pelvic abnormality noted, otherwise. 2. The uterus is surgically absent. Dictated by: Dictated on workstation # [id number]
== END ==
LOC: RAD 09:24
PROVIDERS: ATTEND Obstetrics & Gynecology
DX: R10.2 Pelvic and perineal pain (principal); Z90.710 Acquired absence of both cervix and uterus
CPT/HCPCS: 76830; 76856

== ENCOUNTER 2018-11-09 12:55 | Outpatient (CLI) | payer OTHER ==
[~2018-11-09] VITALS: Ht 154.9 cm; Wt 68.0 kg
[2018-11-09 13:05] VITALS: BP 113/73
[2018-11-09 13:39] LABS: BASOPHILS # (AUTO) 0.1 10^3/uL (0.0-0.1); BASOPHILS % (AUTO) 1 % (0-10); EOSINOPHILS # (AUTO) 0.4 10^3/uL (0.0-0.3); EOSINOPHILS % (AUTO) 5 % (0-10); HEMATOCRIT 30 % (35-52); LYMPHOCYTES # (AUTO) 2.4 X 10^3 (1.0-4.0); LYMPHOCYTES % (AUTO) 32 % (12-44); MEAN CORPUSCULAR HEMOGLOBIN 21 PG (25-34); MEAN CORPUSCULAR HGB CONC 33 G/DL (32-36); MEAN CORPUSCULAR VOLUME 63 FL (80-99); MONOCYTES # (AUTO) 0.6 X 10^3 (0.0-1.0); MONOCYTES % (AUTO) 8 % (0-12); NEUTROPHILS # (AUTO) 4.1 X 10^3 (1.8-7.8); NEUTROPHILS % (AUTO) 55 % (42-75); PLATELET COUNT 197 10^3/uL (130-400); RED CELL DISTRIBUTION WIDTH 15.9 % (10.0-14.5); WHITE BLOOD COUNT 7.4 10^3/uL (4.3-11.0)
== END 2018-11-09 13:20 | disposition home or self-care (01) ==
LOC: PREOP 12:55
PROVIDERS: ATTEND Obstetrics & Gynecology
DX: Z01.812 Encounter for preprocedural laboratory examination (principal); Z11.2 Encounter for screening for other bacterial diseases; R87.613 High grade squamous intraepithelial lesion on cytologic smear of cervix (HGSIL); N83.202 Unspecified ovarian cyst, left side
CPT/HCPCS: 36415; 85025; 86850; 86900; 86901; 87081

== ENCOUNTER 2018-11-16 07:05 | Day surgery (SDC) | payer OTHER ==
[~2018-11-16] VITALS: Ht 154.9 cm; Wt 68.0 kg
[2018-11-16 07:30] VITALS: BP 121/60
[2018-11-16] MEDS ORDERED: metroNIDAZOLE 500MG/100ML IVPB 100 ML IV ONE (07:30)
[2018-11-16] MEDS ORDERED: ceFAZolin INJECTION 1,000 MG in WATER (STERILE) FOR INJECTION 10 ML IV ONE (07:30)
[2018-11-16] MEDS ORDERED: BUPIVACAINE 0.25% 30 ML (SENSORCAINE) VIAL ONE (08:17)
--- NOTE | 2018-11-16 08:26 | Progress Note-Pre Operative ---
Pre-Operative Progress Note H&P Reviewed The H&P was reviewed, patient examined and no changes noted. Date Seen by Provider: Nov 16, 2018 Time Seen by Provider: 08:30 Date H&P Reviewed: Nov 16, 2018 Time H&P Reviewed: 08:30 Pre-Operative Diagnosis: HGSIL, CPP, Hx of supracervical hyst LAURENCE JACKSON DO Nov 16, 2018 08:26
[2018-11-16] MEDS: LACTATED RINGERS 1,000 ML IV PRN ×3 (08:28→12:02)
[2018-11-16] MEDS ORDERED: ceFAZolin INJECTION 1,000 MG ONE (08:35)
[2018-11-16] MEDS ORDERED: LACTATED RINGERS 1,000 ML IV SCH (08:35)
[2018-11-16] MEDS ORDERED: metroNIDAZOLE 500MG/100ML IVPB 100 ML ONE (08:35)
--- NOTE | 2018-11-16 08:41 | Discharge Inst-Women's Service ---
Discharge Inst-Women's Serv Depart Medication/Instructions New, Converted or Re-Newed RX: RX on Chart Final Diagnosis PO Robotic trachelectomy Consults/Follow Up Additional Follow Up: Yes Orders/Referrals Dr. Ahmadi in7-10 days and in 8 Weeks Activity Activity: Activity as Tolerated Driving Instructions: No Driving for 1 Week NO SMOKING: NO SMOKING Nothing Inside Vagina: No Douching, No [place], No Tampons Diet Discharge Diet: No Restrictions Symptoms to Report to : Bleeding Excessive, Pain Increased, Fever Over 101 Degrees F, Vaginal Bleeding Increase, Questions/Concerns For Any Problems or Questions: Contact Your Physician Skin/Wound Care Infection Signs and Symptoms: Increased Redness, Foul Odor of Wound, Increased Drainage, Skin Itchy or Has a Rash, Increased Swelling, Temperature Above 101 F Operative Area Clean and Dry: Keep Incision Clean/Dry Stitches/[place]/Dermabond: Dermabond, Care of Stitches Bathing Instructions: LAURENCE Gamble DO Nov 16, 2018 08:41
[2018-11-16] MEDS ORDERED: DOCU100C37 PO (08:43)
[2018-11-16] MEDS ORDERED: IBUP-844 PO (08:43)
[2018-11-16] MEDS ORDERED: HYDR-34 PO (08:43)
[2018-11-16] MEDS ORDERED: SIMETHICONE 80 MG (MYLICON) CHEW PO PRN (08:45)
[2018-11-16] MEDS ORDERED: ZOLPIDEM 5 MG (AMBIEN) TAB PO PRN (08:45)
[2018-11-16] MEDS ORDERED: KETOROLAC 30 MG/ML VIAL IV PRN (08:45)
[2018-11-16] MEDS ORDERED: DOCUSATE SODIUM 100 MG (COLACE) CAP PO PRN (08:45)
[2018-11-16] MEDS ORDERED: ONDANSETRON 4 MG/2 ML (SDV) Z0FRAN IV PRN (08:45)
[2018-11-16] MEDS ORDERED: ANTACID SUSP 30 ML UDC (MYLANTA) PO PRN (08:45)
[2018-11-16] MEDS ORDERED: CHLORASEPTIC LOZENGE MM PRN (08:45)
[2018-11-16] MEDS ORDERED: HYDROcodone/APAP 7.5 MG/325 MG (LORTAB, LORCET PLUS) TABLET PO PRN (08:45)
[2018-11-16] MEDS ORDERED: MIDAZOLAM 2 MG/2 ML (VERSED) VIAL ONE (08:48)
[2018-11-16] MEDS ORDERED: fentaNYL INJECTION 100 MCG/2 ML AMP ONE ×2 (08:49→11:11)
[2018-11-16] MEDS ORDERED: proPOfol 200 MG/20 ML (DIPRIVAN) VIAL IV ONE (08:57)
[2018-11-16] MEDS ORDERED: ONDANSETRON 4 MG/2 ML (SDV) Z0FRAN ONE ×2 (08:57→12:27)
[2018-11-16] MEDS ORDERED: LIDOCAINE JELLY 2% 6 ML SYRINGE ONE (08:57)
[2018-11-16] MEDS ORDERED: LIDOCAINE PF 2% 5 ML (XYLOCAINE) VIAL ONE (08:57)
[2018-11-16] MEDS ORDERED: DEXAMETHASONE 10 MG/ML (DECADRON) 1 ML VIAL ONE (08:57)
[2018-11-16] MEDS ORDERED: KETOROLAC 30 MG/ML VIAL ONE (08:59)
[2018-11-16] MEDS ORDERED: SEVOFLURANE (ULTANE) 15 ML INHAL SOLN ONE ×7 (08:59→11:18)
[2018-11-16] MEDS ORDERED: ROCURONIUM 10 MG/ML 5 ML SYRINGE IV ONE (08:59)
[2018-11-16] MEDS ORDERED: NEOSTIGMINE 1 MG/ML 5 ML SYRINGE ONE (09:00)
[2018-11-16] MEDS ORDERED: GLYCOPYRROLATE 0.2 MG/ML (ROBINUL) 2 ML VIAL ONE (09:00)
[2018-11-16] MEDS ORDERED: LACTATED RINGERS 0 ML IV ONE (10:42)
[2018-11-16] MEDS ORDERED: morphine INJ 10 MG/ML 1ML (SYR OR VIAL) IVP ONE (12:15)
[2018-11-16] MEDS ORDERED: MEPERIDINE (DEMEROL) INJ 50 MG/ML IVP ONE (12:15)
[2018-11-16] MEDS ORDERED: ONDANSETRON 4 MG/2 ML (SDV) Z0FRAN IVP PRN (12:15)
[2018-11-16] MEDS ORDERED: fentaNYL INJECTION 100 MCG/2 ML AMP IVP ONE (12:15)
[2018-11-16] MEDS ORDERED: morphine INJ 10 MG/ML 1ML (SYR OR VIAL) ONE (12:30)
--- NOTE | 2018-11-16 13:15 | NUR ---
Received from PACU - pt alert and oriented. with some language barrier. Daughter present and interpreting. No vaginal bleeding. Pacheco draining clear yellow urine. Bandaids on abdomen clean and dry. Hypoactive bowel sounds, LCTA, heart rate regular. No edema. IV infusing without difficulty.
[2018-11-16 13:20] VITALS: BP 130/72
[2018-11-16 14:20] VITALS: BP 103/64
[2018-11-16 15:45] VITALS: BP 106/66
--- NOTE | 2018-11-16 17:50 | NUR ---
To exit via w/c. Accompained by and staff. Written instructions given in hebrew.
--- NOTE | 2018-11-16 19:38 | OPERATIVE REPORT ---
DATE OF SERVICE: 11/16/2018 PREOPERATIVE DIAGNOSES: 1. 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 2. History of supracervical hysterectomy . 3. Chronic pelvic pain. 4. Right adnexal cyst. POSTOPERATIVE DIAGNOSES: 1. 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 2. History of supracervical hysterectomy . 3. Chronic pelvic pain. 4. Right adnexal cyst. 5. Extensive pelvic and abdominal adhesions. 6. Right ovarian cyst. SURGEON: Aldo Ahmadi DO. PROCEDURE: Robotic-assisted total laparoscopic trachelectomy with right ovarian cystotomy and extensive lysis of adhesions lasting greater than 30 minutes. REFRIGERATION SYSTEMS INSTALLER: Lisa Mayer RN. ANESTHESIA: General endotracheal. ESTIMATED BLOOD LOSS: 50 mL. URINE: 200 mL clear at the end of the procedure. FLUIDS: 1800 mL of lactated Ringer's solution. FINDINGS: Grossly normal-appearing external female genitalia, extensive adhesions of the pelvic peritoneum including the fallopian tube over the cervical stump and adhesions of the omentum to the anterior abdominal wall down the midline as well as down the right lower abdominal wall as well. SPECIMENS SENT: Cervix, cervical stump. INDICATIONS FOR PROCEDURE: A 42-year-old female with a patient that was reconsulted in my office. This was approximately 3 years after she underwent hysterectomy for uterine atony. In my office, she had reported a history of not getting a Pap smear since undergoing the procedure because she was not aware that she had a cervix. Pap smear cytology in my office revealed a high-grade squamous intraepithelial lesion as well as the patient had complaints of chronic pelvic pain and abdominal pain. I discussed with the patient to proceed with removal of the cervix versus a LEEP conization; however, we also discussed laparoscopy and then we decided that the best option for her would be to proceed with this laparoscopically and remove the cervix. At the same time, we decided to proceed with this robotically as it would allow for the surgeon more ease and comfort. Risk of the procedure was discussed with the patient in detail including risk of bleeding, infection, damage to surrounding structures including, but not limited to bowel, bladder, ureter, kidneys, possible need for reoperation, postoperative complications, recovery timeframe and risk of even and blood transfusion. Risk from anesthesia was discussed with the patient as well. After all of her questions were answered, consent was obtained in the preoperative area and the patient was taken to the operating room. OPERATIVE REPORT IN DETAIL: Once in the operating room, general anesthesia was found to be adequate. She was placed in the dorsal lithotomy position, prepped and draped in normal sterile fashion. A timeout was performed. I then started by placing a Pacheco catheter using sterile technique. A weighted speculum was inserted into the patient's vagina. Right angle retractor was used to visualize the cervix and 0 Vicryl suture was placed in the anterior and posterior lips of the cervix and used as retraction. I then selected a 6 cm Jessie uterine manipulator tip and a 3.5 cm colpotomy ring, I advanced the tip through the cervix into the peritoneal cavity deploying the balloon on the other side as well as advancing the suture and suturing the cervix to the colpotomy ring as well to assure excellent dissection planes and identification of the vaginal fornix from the superior approach. All other instruments were then removed from the patient's vagina. I performed change of gloves. I took my attention to the abdomen where infraumbilically I infiltrated this area using 0.25% Marcaine. I made an 8 mm incision and directed the Veress needle through the incision until intraperitoneal placement was confirmed using the saline drop test. I then proceeded with insufflation using CO2 gas and opening pressure of 4 mmHg was noted. I proceeded to maximum pressure of 15 mmHg, at which point I placed an 8 mm da Hari camera trocar after removing the Veress needle. Once this trocar was then placed, I am able to confirm intraperitoneal placement using da Hari laparoscope. I then had to place two lateral trocars. These were both 8 mm trocars, approximately 8 cm lateral to my infraumbilical trocar. The skin was infiltrated using 0.25% Marcaine. Incisions were made with a knife and the trocars were placed under direct visualization of the laparoscope. This is very difficult; however, due to the amount of adhesions that are present. I then docked one side of the robot. I bring in the da Hari robot and docked in appropriate fashion using only one instrument due to my limited visibility and extensive amount of adhesions as described above. I have to start with one hand and taking down these adhesions, which are adhesions using the monopolar reza and using both sharp and cautery dissection. Care was taken in this because there was bowel involved with these adhesions, but the bowel was not encountered during my dissection and taking down these adhesions. This takes approximately 30 to 40 minutes after taking down these adhesions, I am able to visualize the pelvic anatomy. The right ovary appears grossly normal. The right fallopian tube was adhesed to the top of the cervical stump. There was no left ovary present. I then proceeded with identifying the anterior vaginal fornix. I pulled the bladder off of the anterior vaginal fornix and create a dissection plane enabling me to enter an anterior colpotomy. This was performed easily using monopolar reza. Then, I am able to identify the posterior aspect of the Jessie uterine manipulator and perform a posterior colpotomy in the posterior vaginal fornix. Once this was done, I take these laterally until the cervical and uterine vessels were encountered, which I bipolar cauterized using the fenestrated bipolar grasper and then cut through using the monopolar reza amputating the cervix from its surrounding anatomic connection. During this process, I also take down the fallopian tube, which was attached to the right ovary and the top portion of this is stuck to the cervix, so it was removed with one specimen. The right ovary was left in place. A cystotomy was performed due to the large ovarian cyst noted there. Clear fluid was noted inside the cyst and I performed a cystotomy using the monopolar reza and cauterizing the bleeding portion of the cauterization site until it was hemostatic. I was then able to close the vaginal cuff which is left using 2-0 Vicryl suture in a [id number] fashion and lateral vaginal apices, colposuspended into the uterosacral ligaments. I closed the remainder of the vaginal cuff using 2-0 V-Loc in a running fashion, after which there was no active bleeding noted from any of my dissection planes. I then undocked the da Hari robot and proceeded with the remainder of the case laparoscopically. I copiously irrigated the pelvis again using normal saline. Once there was no active bleeding noted from any of my dissection planes, I then placed Surgiflo, hemostatic agent over all my planes of dissection. Once again, no active bleeding was noted at that point as well. I then removed the lateral trocars under direct visualization of the laparoscope. The infraumbilical trocar was left in place to release insufflation and to introduce 10 mL of 0.25% Marcaine into the peritoneal cavity. This trocar was then removed as well. The skin was then reapproximated using 4-0 Monocryl in interrupted subcuticular stitches. Dermabond was applied to the incision and sterile dressing with adhesive white tape. Pacheco catheter was left in place. Lap and sponge counts were correct at the end of the procedure. Instrument counts were correct as well. Two grams of Ancef and 500 mg of Flagyl given preoperatively for infection prophylaxis. The patient tolerated the procedure well and was taken to the recovery area in stable condition. Job ID: [id number] DocumentID: [id number] Dictated Date: 11/16/2018 13:22:40 Preparatory Technician Date: 11/16/2018 19:37:46 Dictated By: DO DONNA BRANTLEY
[2018-11-17] MEDS ORDERED: IBUPROFEN 600 MG (MOTRIN) TAB PO PRN (01:15)
--- NOTE | 2018-11-17 07:08 | Anesthesia-General Post-Op ---
General Patient Condition Mental Status/LOC: Same as Preop Cardiovascular: Satisfactory Nausea/Vomiting: Absent Respiratory: Satisfactory Pain: Controlled Complications: Absent Post Op Complications Complications None Follow Up Care/Instructions Patient Instructions None needed. Anesthesia/Patient Condition Patient Condition Patient is doing well, no complaints, stable vital signs, no apparent adverse anesthesia problems. No complications reported per nursing. DANIELITO HOFF CRNA Nov 17, 2018 07:08
== END 2018-11-16 17:50 | disposition home or self-care (01) ==
LOC: SDC 07:05 → WS 13:10 → SDC 17:50
PROVIDERS: ATTEND Obstetrics & Gynecology
DX: N87.0 Mild cervical dysplasia (principal); N83.201 Unspecified ovarian cyst, right side; R10.2 Pelvic and perineal pain; D64.9 Anemia, unspecified
CPT/HCPCS: 36415; 86850; 86900; 86901; 88305; 94664

== ENCOUNTER 2018-11-19 01:29 | Emergency (ER) | payer SELFPAY ==
[~2018-11-19] VITALS: Ht 154.9 cm; Wt 68.0 kg
[~2018-11-19 01:29] MED LIST changes: +DOCU100C37 PO; +HYDR-34 PO; +IBUP-844 PO
[2018-11-19 01:48] LABS: BILIRUBIN,URINE NEGATIVE (NEGATIVE); CLARITY,URINE CLEAR; COLOR,URINE YELLOW; GLUCOSE, URINE (UA) NEGATIVE (NEGATIVE); KETONES,URINE NEGATIVE (NEGATIVE); LEUKOCYTE ESTERASE ,URINE NEGATIVE (NEGATIVE); NITRITE,URINE NEGATIVE (NEGATIVE); PH,URINE 8 (5-9); PROTEIN,URINE NEGATIVE (NEGATIVE); UROBILINOGEN,URINE NORMAL (NORMAL)
[2018-11-19 01:52] LABS: BACTERIA,URINE TRACE /HPF; RBC,URINE RARE /HPF
--- NOTE | 2018-11-19 02:02 | ED GI ---
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 JACKSON ON Tuesday11/16/18. --REMOVAL OF CERVIX AND RIGHT OVARIAN CYST. 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 ALSO TAKING IBUPROFEN 600MG--LAST DOSE 0030 TODAY. PT ALSO HAS RX FOR COLACE 100 MG BID, AND HAS BEEN TAKING PRESCRIBED PCP: [facility] ADJUSTER PIANO ACTION: DR. JACKSON Allergies and Home Medications Allergies Coded Allergies: No Known Drug Allergies (Unverified , 02/23/15) Home Medications Docusate Sodium 100 Mg Capsule, 100 MG PO BID PRN for CONSTIPATION-1ST LINE Prescribed by: LAURENCE JACKSON on 11/16/18 0843 Hydrocodone Bit/Acetaminophen 1 Ea Tablet, 2 EA PO Q6H PRN for Pain-See Instructions Prescribed by: LAURENCE JACKSNO on 11/16/18 0843 Ibuprofen 600 Mg Tablet, 600 MG PO Q6H PRN for PAIN-MODERATE Prescribed by: LAURENCE JACKSON on 11/16/18 0843 Patient Home Medication List Home Medication List Reviewed: Yes Review of Systems Review of Systems Constitutional: no symptoms reported; No chills, No diaphoresis, No fever Respiratory: No Symptoms Reported Cardiovascular: No Symptoms Reported Gastrointestinal: See HPI, Abdominal Pain, Constipated; Denies Nausea, Denies Vomiting Genitourinary: See HPI, Burning Musculoskeletal: no symptoms reported Skin: no symptoms reported Psychiatric/Neurological: No Symptoms Reported Endocrine: No Symptoms Reported Hematologic/Lymphatic: No Symptoms Reported Past Kkrxkzc-Bwkwdh-Vuaead Hx Patient Social History Alcohol Use: Denies Use Recreational Drug Use: No Smoking Status: Current Everyday Smoker Type Used: Cigarettes 2nd Hand Smoke Exposure: No Recent Foreign Travel: No Contact w/Someone Who Travel: No Recent Hopitalizations: No Immunizations Up To Date Tetanus Booster (TDap): Less than 5yrs PED Vaccines UTD: Yes Date of Influenza Vaccine: Aug 12, 2014 Seasonal Allergies Seasonal Allergies: No Past Medical History Surgeries: Yes (TEETH PULLED, C/S X2, SUPRACERVICAL HYST; CERVIX AND RIGHT OVARIAN CYST REMOVAL AND LYSIS OF ADHESIONS 11/16/[address] JACKSON. 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 [facility]O ACTION History: Hysterectomy Sexually Transmitted Disease: No HIV/AIDS: No Genitourinary: No Gastrointestinal: No Musculoskeletal: No Endocrine: Yes Diabetes, Non-Insulin dep HEENT: No Loss of Vision: Denies Hearing Impairment: Denies Cancer: No Psychosocial: No Integumentary: No Blood Disorders: Yes (ANEMIA) Adverse Reaction/Blood Tranf: No (has had blood without problems) Family Medical History Deafness or hearing loss DAUGHTER Diabetes mellitus G8 SISTER (IDDM AGE 35 YR) Drug abuse G8 BROTHER Kidney disease G8 SISTER Seizure disorder DAUGHTER No Family History of: AIDS Abdominal aortic aneurysm Byers's disease Alcoholism Alzheimer's disease Aphasia Arthritis Asthma Cancer of mouth Cardiovascular disease Cataracts Colon cancer Completed stroke Congenital disease Congenital heart disease Coronary thrombosis Cystic fibrosis Dementia Dysphasia Fibrocystic disease of breast Gastroenteritis Glaucoma Headache disorder Hypercholesterolemia Hypertension Infertility Myocardial infarction Neoplasm Not obtainable due to adoption Osteoporosis Parkinson's disease Prostate cancer Psychosocial problem Respiratory disorder Severe allergy Thyroid disease Tuberculosis Visual disorder Physical Exam Vital Signs Vital Signs - First Documented 11/19/18 01:40 Temp 96.7 Pulse 66 Resp 16 B/P (MAP) 128/67 (87) Capillary Refill : Height/Weight/BMI Height: 5'1.00" Weight: 150lbs. 0.0oz. 68.720952sc; 28.3 BMI Method:Estimated General Appearance: WD/WN, no apparent distress Respiratory: normal breath sounds, no respiratory distress, no accessory muscle use Cardiovascular: regular rate, rhythm, no murmur Gastrointestinal: normal bowel sounds, soft; No distended, No guarding, No rebound; tenderness (DIFFUSE TENDERNESS--MILD TENDERNESS IN UPPER ABDOMEN, MODERATE TENDERNESS IN LOWER ABDOMEN, MOST IN LLQ AND SUPRAPUBIC AREA. ); No hernia, No mass; other (SURGICAL INCISIONS CLEAN, DRY AND INTACT. NO SIGNS OF INFECTION) Extremities: normal inspection, no pedal edema, normal capillary refill Back: no CVA tenderness Neurologic/Psychiatric: extension course counselor II-XII nml as tested, no motor/sensory deficits, alert, normal mood/affect, oriented x 3 Skin: normal color, warm/dry Progress/Results/Core Measures Results/Orders Lab Results Laboratory Tests Test 11/19/18 01:40 Range/Units Urine Color YELLOW Urine Clarity CLEAR Urine pH 8 5-9 Urine Specific [place] 1.010 L 1.016-1.022 Urine Protein NEGATIVE NEGATIVE Urine Glucose (UA) NEGATIVE NEGATIVE Urine Ketones NEGATIVE NEGATIVE Urine Nitrite NEGATIVE NEGATIVE Urine Bilirubin NEGATIVE NEGATIVE Urine Urobilinogen NORMAL NORMAL MG/DL Urine Leukocyte Esterase NEGATIVE NEGATIVE Urine RBC (Auto) 1+ H NEGATIVE Urine RBC RARE /HPF Urine WBC NONE /HPF Urine Squamous Epithelial Cells 5-10 /HPF Urine Crystals NONE /LPF Urine Bacteria TRACE /HPF Urine Casts NONE /LPF Urine Mucus NEGATIVE /LPF Urine Culture Indicated NO My Orders Orders - JACQUI GREENE DO Ua Culture If Indicated (11/19/18 01:39) Abdomen, Flat & Upright/Decub (11/19/18 01:47) Vital Signs/I&O 11/19/18 01:40 Temp 96.7 Pulse 66 Resp 16 B/P (MAP) 128/67 (87) Diagnostic Imaging Comments ABDOMEN XRAYS--CONSTIPATION, NO OBSTRUCTION, PENDING RADIOLOGIST REVIEW Reviewed: Reviewed by Me Departure Impression Primary Impression: POST OP CONSTIPATION Disposition: 01 HOME, SELF-CARE Condition: Stable Departure-Patient Inst. Referrals: LAURENCE JACKSON,LOCAL PHYSICIAN (PCP) Primary Care Physician Patient Instructions: Constipation, Adult (DC) Add. Discharge Instructions: INCREASE YOUR FLUID INTAKE--DRINK ENOUGH CLEAR LIQUIDS SO YOU ARE URINATING EVERY 2 HOURS WHILE AWAKE TAKE YOUR MEDICATIONS PRESCRIBED, EXCEPT YOU MAY INCREASE COLACE TO 2 PILLS TWICE A DAY TAKE MIRALAX EVERY 1-2 HOURS UNTIL YOUR STOOLS ARE CLEAR USE DULCOLAX SUPPOSITORIES EVERY 2-3 HOURS NEEDED FOR BM FOLLOW UP WITH DR. JACKSON IN 2-3 DAYS IF NO BETTER, RETURN TO ER IF WORSE All discharge instructions reviewed with patient and/or family. Voiced understanding. JACQUI GREENE DO Nov 19, 2018 02:02
[2018-11-19 02:35] VITALS: BP 127/65
--- NOTE | 2018-11-19 06:32 | Diagnostic Imaging Report ---
INDICATION: Abdominal pain, constipation.. TECHNIQUE: Supine and upright view of the abdomen 2:08 AM CORRELATION STUDY: None FINDINGS: Imaging of the abdomen demonstrates the bowel gas pattern to be unremarkable and without evidence for obstruction. No significant differential air-fluid levels. Mild to moderate severity fecal retention. No evidence for free air. No pathologic intraabdominal calcifications. IMPRESSION: 1. Mild to moderate severity fecal retention. No evidence for bowel obstruction. Dictated by: Dictated on workstation # [id number]
== END 2018-11-19 02:36 | disposition home or self-care (01) ==
LOC: EDUNIT# 01:29 → ER 01:30
DX: K59.00 Constipation, unspecified (principal); N99.89 Other postprocedural complications and disorders of genitourinary system; E11.9 Type 2 diabetes mellitus without complications; D64.9 Anemia, unspecified; F17.210 Nicotine dependence, cigarettes, uncomplicated; Z98.890 Other specified postprocedural states; Z87.448 Personal history of other diseases of urinary system; Z90.710 Acquired absence of both cervix and uterus
CPT/HCPCS: 74019; 81000

== ENCOUNTER → 2019-07-17 | Outpatient (CLI) | payer SELFPAY ==
[~2019-07-17] MED LIST changes: +HOLD METFORMIN - RECEIVED CONTRAST 20 ML VIAL IV SCH; +IOHEXOL 350 MG/ML 100 ML (OMNIPAQUE 350) VIAL IV ONE; +NS 100 ML (IVPB) BAG IV ONE
--- NOTE | 2019-07-17 09:43 | Diagnostic Imaging Report ---
PROCEDURE: CT abdomen and pelvis with contrast. TECHNIQUE: Multiple contiguous axial images were obtained through the abdomen and pelvis after administration of intravenous contrast. Auto Exposure Controls were utilized during the CT exam to meet ALARA standards for radiation dose reduction. INDICATION: Hepatic cyst. Study compared 08/04/2018. FINDINGS: Cyst in the left and right hepatic lobe are unchanged from the previous exam. No solid or enhancing hepatic nodule. No biliary dilatation. The gallbladder unremarkable. The spleen, adrenals and pancreas are unremarkable. The kidneys are unobstructed. The appendix normal. There is no diverticulitis. No suspicious adnexal lesion. No abdominopelvic ascites. No bowel, biliary or urinary tract obstruction. No free air or fluid collection. No focal inflammatory process. No aneurysm or adenopathy. Follicular cyst of the right ovary noted incidentally. IMPRESSION: Stable hepatic cyst. No acute or suspicious finding. Dictated by: Dictated on workstation # [id number]
== END ==
LOC: RAD 08:26
PROVIDERS: ATTEND Nurse Practitioner Family
DX: K76.89 Other specified diseases of liver (principal)
CPT/HCPCS: 74177

== ENCOUNTER 2021-01-30 02:31 | Emergency (ER) | payer SELFPAY ==
[~2021-01-30 02:31] MED LIST changes: -HOLD METFORMIN - RECEIVED CONTRAST 20 ML VIAL IV SCH; -IOHEXOL 350 MG/ML 100 ML (OMNIPAQUE 350) VIAL IV ONE; -NS 100 ML (IVPB) BAG IV ONE
--- NOTE | 2021-01-30 03:04 | ED Cough/URI ---
General Chief Complaint: Abdominal/GI Problems Stated Complaint: CHILLING,OVALLE,NAUSEA Nursing Triage Note: TO ED VIA POV AND AMBULATORY TO ROOM 5 WITH C/O NAUSEA, CHILLS, H/A. Sepsis Screen: Possible Severe Sepsis Risk Source: patient, family Exam Limitations: language barrier (Adult daughter doing interpretation) History of Present Illness Date Seen by Provider: Jan 30, 2021 Time Seen by Provider: 02:49 Initial Comments Patient presents ER by private conveyance with significant other and daughter who is interpreting for Senegalese for her. She states she is since Tuesday had occasional dry nonproductive cough, headache, sinus pain, chills. 2 days ago she went to the urgent care clinic and was given Zyrtec and Flonase and still feels sick. No sick contacts, recent travel outside the [facility], camping or drinking from unsafe water. No diarrhea. She had a normal stool yesterday. She had a little nausea but no vomiting. No objective fevers. She took Tylenol only with her last dose being 7:00 yesterday evening. Allergies and Home Medications Allergies Coded Allergies: No Known Drug Allergies (Unverified , 02/23/15) Home Medications Azithromycin 250 Mg Tablet, 250 MG PO UD TAKE 2 TABLETS ON DAY ONE THEN TAKE 1 TABLET DAILY FOR FOUR MORE DAYS Prescribed by: MAURI GORDON on 01/30/21315 Docusate Sodium 100 Mg Capsule, 100 MG PO BID PRN for CONSTIPATION-1ST LINE Prescribed by: LAURENCE JACKSON on 11/16/18 0843 Hydrocodone Bit/Acetaminophen 1 Ea Tablet, 2 EA PO Q6H PRN for Pain-See Instructions Prescribed by: LAURENCE JACKSON on 11/16/18 0843 Ibuprofen 600 Mg Tablet, 600 MG PO Q6H PRN for PAIN-MODERATE Prescribed by: LAURENCE JACKSON on 11/16/18 0843 Ondansetron 4 Mg Tab.rapdis, 4 MG PO Q6H PRN for NAUSEA/VOMITING Prescribed by: MAURI GORDON on 01/30/21315 Patient Home Medication List Home Medication List Reviewed: Yes Review of Systems Review of Systems Constitutional: No chills, No diaphoresis EENTM: No ear discharge, No ear pain Respiratory: cough; No phlegm, No short of breath Cardiovascular: No chest pain, No palpitations Gastrointestinal: No abdominal pain; nausea; No vomiting Genitourinary: No discharge, No dysuria Musculoskeletal: No back pain, No joint pain All Other Systems Reviewed Negative Unless Noted: Yes Past Qizuwgh-Jumnuo-Navvir Hx Patient Social History Alcohol Use: Denies Use Drug of Choice: denies Smoking Status: Current Everyday Smoker Type Used: Cigarettes 2nd Hand Smoke Exposure: No Recent Infectious Disease Expo: No Recent Hopitalizations: No Immunizations Up To Date Tetanus Booster (TDap): Less than 5yrs PED Vaccines UTD: Yes Date of Influenza Vaccine: Aug 12, 2014 Seasonal Allergies Seasonal Allergies: No Past Medical History Surgeries: Yes Section, Hysterectomy Respiratory: No Cardiac: No Neurological: No Reproductive Disorders: Yes (OVARIAN CYST; CERVICAL DYSPLASIA) Female 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 Sexually Transmitted Disease: No HIV/AIDS: No Genitourinary: No Gastrointestinal: No Musculoskeletal: No Endocrine: Yes Diabetes, Non-Insulin dep HEENT: No Loss of Vision: Denies Hearing Impairment: Denies Cancer: No Psychosocial: No Integumentary: No Blood Disorders: Yes (ANEMIA) Adverse Reaction/Blood Tranf: No (has had blood without problems) Family Medical History Deafness or hearing loss DAUGHTER Diabetes mellitus G8 SISTER (IDDM AGE 35 YR) Drug abuse G8 BROTHER Kidney disease G8 SISTER Seizure disorder DAUGHTER No Family History of: AIDS Abdominal aortic aneurysm Luca's disease Alcoholism Alzheimer's disease Aphasia Arthritis Asthma Cancer of mouth Cardiovascular disease Cataracts Colon cancer Completed stroke Congenital disease Congenital heart disease Coronary thrombosis Cystic fibrosis Dementia Dysphasia Fibrocystic disease of breast Gastroenteritis Glaucoma Headache disorder Hypercholesterolemia Hypertension Infertility Myocardial infarction Neoplasm Not obtainable due to adoption Osteoporosis Parkinson's disease Prostate cancer Psychosocial problem Respiratory disorder Severe allergy Thyroid disease Tuberculosis Visual disorder Physical Exam Vital Signs - First Documented 01/30/21 02:48 Temp 39.0 Pulse 112 Resp 16 B/P (MAP) 130/51 (77) O2 Delivery Room Air Capillary Refill : Less Than 3 Seconds Height: 5'1.00" Weight: 150lbs. 0.0oz. 68.493077bi; 28.3 BMI Method:Stated General Appearance: WD/WN, no apparent distress Eyes: Bilateral Eye Normal Inspection, Bilateral Eye PERRL, Bilateral Eye EOMI HEENT: PERRL/EOMI, normal ENT inspection, TMs normal, pharyngeal erythema (Retropharyngeal erythema without exudate), other (Mild tenderness to palpation over bilateral maxillary and frontal sinuses) Neck: non-tender, full range of motion, supple, normal inspection, lymphadenopathy (R) (Mild, shotty anterior cervical lymphadenopathy bilaterall y), lymphadenopathy (L) Respiratory: lungs clear, normal breath sounds, no respiratory distress, no accessory muscle use Cardiovascular: normal peripheral pulses, regular rate, rhythm Neurologic/Psychiatric: alert, normal mood/affect, oriented x 3 Skin: normal color, warm/dry Progress/Results/Core Measures Suspected Sepsis Recent Fever Within 48 Hours: Yes Infection Criteria Present: Suspected New Infection New/Unexplained Altered Menta: No Sepsis Screen: Possible Severe Sepsis Risk SIRS Temperature: Pulse: 112 Respiratory Rate: 16 Blood Pressure 130 /51 Mean: 77 Results/Orders Lab Results Laboratory Tests Test 01/30/21 03:05 Range/Units Influenza Type A (RT-PCR) Not Detected Not Detecte Influenza Type B (RT-PCR) Not Detected Not Detecte SARS-CoV-2 RNA (RT-PCR) Negative Not Detecte My Orders Orders - MAURI GORDON Ketorolac Injection (Toradol Injection) (01/30/21 03:15) Covid 19 Inhouse Test (01/30/21 03:01) Influenza A And B By Pcr (01/30/21 03:01) Vital Signs/I&O 01/30/21 01/30/21 02:48 02:48 Temp 39.0 Pulse 112 Resp 16 B/P (MAP) 130/51 (77) O2 Delivery Room Air Room Air Capillary Refill : Less Than 3 Seconds Blood Pressure Mean: 77 Progress Note #1: Time: 03:12 Progress Note Well-appearing adult female with what appears to be a viral syndrome with some sinus involvement. We have given conservative counseling instructions we will provide her with some Toradol, Zofran for her nausea and a prescription for an antibiotic if she develops symptoms more consistent with a bacterial infection. Patient has requested a test for COVID-19. She has been vaccinated. Progress Note #2: Time: 04:03 Progress Note Despite a short delay with the test results the patient is ready to go home after a shot of Toradol for her pain. Departure Impression Primary Impression: Viral upper respiratory tract infection with cough Disposition: 01 HOME, SELF-CARE Condition: Stable Departure-Patient Inst. Decision time for Depature: 03:51 Referrals: [facility] (PCP) Primary Care Physician HARRIET HOLLIS MD (Family) Primary Care Physician Patient Instructions: Viral Upper Respiratory Infection, Adult (DC) Add. Discharge Instructions: Drink plenty of fluids and get plenty of rest. Zofran 1 tablet under the tongue every 6 hours as necessary for nausea and/or vomiting. If you have congestion or pain in your nose and forehead then you can use 1 tablet of chlorphentermine every 6 hours as necessary for decongestant. You may continue to use the Zyrtec however I would avoid using the Flonase for now. Expect your symptoms to improve over the next 3 to 4 days. You have been provided with a prescription for an antibiotic. Antibiotics will only help with a bacterial infection. At this time you have a viral syndrome. You are to start the antibiotic if any of the following occur: The infection last for greater than 10 days with pain in your sinuses. Severe pain in your sinuses especially with mucus discharge from your nose. Fever greater than 102.5. If any of these symptoms occur then I would encourage you to take the antibiotic and follow-up with your primary care doctor in the following week. All discharge instructions reviewed with patient and/or family. Voiced understanding. Scripts Ondansetron (Ondansetron Odt) 4 Mg Tab.rapdis 4 MG PO Q6H PRN for NAUSEA/VOMITING, #8 TAB 0 Refills Prov: MAURI GORDON 01/30/21 Azithromycin (Azithromycin) 250 Mg Tablet 250 MG PO UD, #6 TAB 0 Refills TAKE 2 TABLETS ON DAY ONE THEN TAKE 1 TABLET DAILY FOR FOUR MORE DAYS Prov: MAURI GORDON 01/30/21 Work/School Note: Work Release Form Date Seen in the Emergency Department: Jan 30, 2021 Return to Work: Feb 02, 2021 Restrictions: No Restrictions Other Restrictions Listed Below: May return to work when 24 hours symptom- free. MAURI GORDON Jan 30, 2021 03:04
[2021-01-30] MEDS ORDERED: KETOROLAC 60 MG/2 ML VIAL IM ONE (03:15)
[2021-01-30] MEDS ORDERED: AZIT250T12 PO (03:16)
[2021-01-30] MEDS ORDERED: ONDA4TAB11 PO (03:16)
[2021-01-30 04:25] VITALS: BP 118/68
== END 2021-01-30 04:25 | disposition home or self-care (01) ==
LOC: EDUNIT# 02:31 → ER 02:35
DX: J06.9 Acute upper respiratory infection, unspecified (principal); R11.0 Nausea; R59.0 Localized enlarged lymph nodes; E11.9 Type 2 diabetes mellitus without complications; F17.210 Nicotine dependence, cigarettes, uncomplicated
CPT/HCPCS: 87636; 99284

== ENCOUNTER 2021-11-14 21:42 | Emergency (ER) | payer SELFPAY ==
[~2021-11-14 21:42] MED LIST changes: +AZIT250T12 PO; +ONDA4TAB11 PO
[2021-11-14 21:55] VITALS: BP 133/64
[2021-11-14 22:26] LABS: BASOPHILS # (AUTO) 0.1 10^3/uL (0.0-0.1); BASOPHILS % (AUTO) 1 % (0-10); EOSINOPHILS # (AUTO) 0.3 10^3/uL (0.0-0.3); EOSINOPHILS % (AUTO) 3 % (0-10); HEMATOCRIT 34 % (35-52); HEMOGLOBIN 10.7 g/dL (11.5-16.0); LYMPHOCYTES # (AUTO) 4.2 10^3/uL (1.0-4.0); LYMPHOCYTES % (AUTO) 43 % (12-44); MEAN CORPUSCULAR HEMOGLOBIN 21 pg (25-34); MEAN CORPUSCULAR HGB CONC 32 g/dL (32-36); MEAN CORPUSCULAR VOLUME 65 fL (80-99); MONOCYTES # (AUTO) 0.6 10^3/uL (0.0-1.0); MONOCYTES % (AUTO) 6 % (0-12); NEUTROPHILS # (AUTO) 4.7 10^3/uL (1.8-7.8); NEUTROPHILS % (AUTO) 47 % (42-75); PLATELET COUNT 197 10^3/uL (130-400); WHITE BLOOD COUNT 9.9 10^3/uL (4.3-11.0)
[2021-11-14] MEDS ORDERED: LACTATED RINGERS 1,000 ML IV ONE (22:30)
[2021-11-14] MEDS ORDERED: ONDANSETRON 4 MG/2 ML (SDV) Z0FRAN IVP ONE (22:30)
--- NOTE | 2021-11-14 22:33 | ED GI ---
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) Exam Limitations: Language Barrier History of Present Illness Date Seen by Provider: Nov 14, 2021 Time Seen by Provider: 22:15 Initial Comments PT ARRIVES VIA POV FROM HOME PT STATES SHE WOKE UP AT 0500 WITH NAUSEA--NO VOMITING OR DIARRHEA HAS HAD MILD INTERMITTENT PERIUMBILICAL PAIN TODAY--NO PAIN NOW NO URINARY SYMPTOMS NO FEVER HAS BEEN A LITTLE BIT DIZZY TODAY, AND HAS HAD A MILD HEADACHE PT TOOK ZOFRAN AT 1800 TONIGHT, AND IT HELPED A LITTLE PT STATES SHE HAS BEEN ABLE TO EAT AND DRINK TODAY PT HAS HISTORY OF UTI'S, BUT NONE FOR ABOUT A YEAR PT HAS HAD HYSTERECTOMY AND RIGHT OVARIAN CYSTECTOMY. PT HAS HAD COVID-19 VACCINES X 3, NO FLU VACCINE GRAND DAUGHTER HAD COVID ABOUT A MONTH AGO PT DOES NOT HAVE ANY RESPIRATORY SYMPTOMS PT IS A SMOKER, DENIES ALCOHOL OR DRUG USE PCP: [facility] Allergies and Home Medications Allergies Coded Allergies: No Known Drug Allergies (Unverified , 02/23/15) Patient Home Medication List Azithromycin (Azithromycin) 250 Mg Tablet, 250 MG PO UD Prescribed by: MAURI GORDON on 01/30/21 0316 Docusate Sodium (Docusate Sodium) 100 Mg Capsule, 100 MG PO BID PRN for CONSTIPATION-1ST LINE Prescribed by: LAURENCE JACKSON on 11/16/18 0843 Hydrocodone Bit/Acetaminophen (Lortab 7.5 Mg Tablet) 1 Ea Tablet, 2 EA PO Q6H PRN for Pain-See Instructions Prescribed by: LAURENCE JACKSON on 11/16/18 0843 Ibuprofen (Ibu) 600 Mg Tablet, 600 MG PO Q6H PRN for PAIN-MODERATE Prescribed by: LAURENCE JACKSON on 11/16/18 0843 Ondansetron (Ondansetron Odt) 4 Mg Tab.rapdis, 4 MG PO Q6H PRN for NAUSEA/VOMITING Prescribed by: MAURI GORDON on 01/30/216 Review of Systems Review of Systems Constitutional: dizziness; No fever EENTM: No Symptoms Reported Respiratory: No Symptoms Reported Cardiovascular: No Symptoms Reported Gastrointestinal: See HPI, Abdominal Pain; Denies Diarrhea; Nausea; Denies Vomiting Genitourinary: No Symptoms Reported Musculoskeletal: no symptoms reported Skin: no symptoms reported Psychiatric/Neurological: See HPI, Headache Endocrine: No Symptoms Reported Hematologic/Lymphatic: No Symptoms Reported Past Zpftnto-Lktjdj-Sllrkq Hx Patient Social History Tobacco Use?: Yes Tobacco type used: Cigarettes Smoking Status: Current Everyday Smoker Substance use?: No Alcohol Use?: No Immunizations Up To Date Tetanus Booster (TDap): Less than 5yrs PED Vaccines UTD: Yes Seasonal Allergies Seasonal Allergies: No Past Medical History Surgeries: Yes Section, Hysterectomy Respiratory: No Cardiac: No Neurological: No : No Hx : 7 Hx Para: 4 Hx Total # of Abortions (Sp): 3 Reproductive Disorders: Yes (OVARIAN CYST; CERVICAL DYSPLASIA) Female Reproductive Disorders: Ovarian Cyst 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 History: Hysterectomy Sexually Transmitted Disease: No HIV/AIDS: No Genitourinary: No Gastrointestinal: No Musculoskeletal: No Endocrine: Yes (GESTATIONAL DIABETES) Diabetes, Non-Insulin dep HEENT: No Loss of Vision: Denies Hearing Impairment: Denies Cancer: No Psychosocial: No Integumentary: No Blood Disorders: Yes (ANEMIA) Adverse Reaction/Blood Tranf: No (has had blood without problems) Family Medical History Deafness or hearing loss DAUGHTER Diabetes mellitus G8 SISTER (IDDM AGE 35 YR) Drug abuse G8 BROTHER Kidney disease G8 SISTER Seizure disorder DAUGHTER No Family History of: AIDS Abdominal aortic aneurysm Dawson's disease Alcoholism Alzheimer's disease Aphasia Arthritis Asthma Cancer of mouth Cardiovascular disease Cataracts Colon cancer Completed stroke Congenital disease Congenital heart disease Coronary thrombosis Cystic fibrosis Dementia Dysphasia Fibrocystic disease of breast Gastroenteritis Glaucoma Headache disorder Hypercholesterolemia Hypertension Infertility Myocardial infarction Neoplasm Not obtainable due to adoption Osteoporosis Parkinson's disease Prostate cancer Psychosocial problem Respiratory disorder Severe allergy Thyroid disease Tuberculosis Visual disorder SOCIAL HISTORY: -SMOKES 1 PPD -ETOH--DENIES USE -DRUGS--DENIES USE PAST SURGICAL HISTORY: - X 2 -SUPRACERVICAL HYSTERECTOMY 01/2015 DUE TO POST HEMORRHAGE/UTERINE ATONY -11/16/2018--ROBOTIC ASSISTED CERVIX REMOVAL/TRACHELECTOMY WITH RIGHT OVARIAN CYSTECTOMY AND EXTENSIVE LYSIS OF ADHESIONS FOR HIGH GRADE SQUAMOUS INTRAEPITHELIAL LESION, CHRONIC PELVIC PAIN AND RIGHT OVARIAN CYST Physical Exam Vital Signs Vital Signs - First Documented 11/14/21 21:55 Temp 36.8 Pulse 64 Resp 18 B/P (MAP) 133/64 (87) Pulse Ox 99 O2 Delivery Room Air Capillary Refill : Height/Weight/BMI Height: 5'1.00" Weight: 150lbs. 0.0oz. 68.811305la; 28.3 BMI Method:Stated General Appearance: WD/WN, no apparent distress, other (DOES NOT APPEAR ILL OR TO BE IN ANY DISCOMFORT OR DISTRESS. WALKS UPRIGHT AND MOVES WITHOUT DIFFICULTY. ) Neck: normal inspection Respiratory: normal breath sounds, no respiratory distress, no accessory muscle use Cardiovascular: regular rate, rhythm, no murmur Gastrointestinal: normal bowel sounds, non tender, soft, no organomegaly, no pulsatile mass Extremities: normal inspection Back: normal inspection, no CVA tenderness Neurologic/Psychiatric: proof tester II-XII nml as tested, no motor/sensory deficits, alert, normal mood/affect, oriented x 3 Skin: normal color (PT IS ), warm/dry; No rash Progress/Results/Core Measures Results/Orders Lab Results Laboratory Tests Test 11/14/21 22:10 11/14/21 22:15 11/14/21 22:22 Range/Units Urine Color YELLOW Urine Clarity CLEAR Urine pH 7.5 5-9 Urine Specific [place] 1.015 L 1.016-1.022 Urine Protein NEGATIVE NEGATIVE Urine Glucose (UA) NEGATIVE NEGATIVE Urine Ketones NEGATIVE NEGATIVE Urine Nitrite NEGATIVE NEGATIVE Urine Bilirubin NEGATIVE NEGATIVE Urine Urobilinogen 0.2 < = 1.0 MG/DL Urine Leukocyte Esterase NEGATIVE NEGATIVE Urine RBC (Auto) NEGATIVE NEGATIVE Urine RBC NONE /HPF Urine WBC NONE /HPF Urine Squamous Epithelial Cells 0-2 /HPF Urine Crystals NONE /LPF Urine Bacteria NEGATIVE /HPF Urine Casts NONE /LPF Urine Mucus SMALL H /LPF Urine Culture Indicated NO White Blood Count 9.9 4.3-11.0 10^3/uL Red Blood Count 5.15 H 3.80-5.11 10^6/uL Hemoglobin 10.7 L 11.5-16.0 g/dL Hematocrit 34 L 35-52 % Mean Corpuscular Volume 65 L 80-99 fL Mean Corpuscular Hemoglobin 21 L 25-34 pg Mean Corpuscular Hemoglobin Concent 32 32-36 g/dL Red Cell Distribution Width 15.3 H 10.0-14.5 % Platelet Count 197 130-400 10^3/uL Mean Platelet Volume 9.0-12.2 fL Immature Granulocyte % (Auto) 0 % Neutrophils (%) (Auto) 47 42-75 % Lymphocytes (%) (Auto) 43 12-44 % Monocytes (%) (Auto) 6 0-12 % Eosinophils (%) (Auto) 3 0-10 % Basophils (%) (Auto) 1 0-10 % Neutrophils # (Auto) 4.7 1.8-7.8 10^3/uL Lymphocytes # (Auto) 4.2 H 1.0-4.0 10^3/uL Monocytes # (Auto) 0.6 0.0-1.0 10^3/uL Eosinophils # (Auto) 0.3 0.0-0.3 10^3/uL Basophils # (Auto) 0.1 0.0-0.1 10^3/uL Immature Granulocyte # (Auto) 0.0 0.0-0.1 10^3/uL Sodium Level 140 135-145 MMOL/L Potassium Level 3.9 3.6-5.0 MMOL/L Chloride Level 104 98-107 MMOL/L Carbon Dioxide Level 24 21-32 MMOL/L Anion Gap 12 5-14 MMOL/L Blood Urea Nitrogen 11 7-18 MG/DL Creatinine 0.65 0.60-1.30 MG/DL Estimat Glomerular Filtration Rate 111 BUN/Creatinine Ratio 17 Glucose Level 98 70-105 MG/DL Calcium Level 10.1 8.5-10.1 MG/DL Corrected Calcium 8.5-10.1 MG/DL Magnesium Level 2.1 1.6-2.4 MG/DL Total Bilirubin 0.7 0.1-1.0 MG/DL Aspartate Amino Transf (AST/SGOT) 16 5-34 U/L Alanine Aminotransferase (ALT/SGPT) 9 0-55 U/L Alkaline Phosphatase 57 40-136 U/L Total Protein 7.6 6.4-8.2 GM/DL Albumin 4.6 H 3.2-4.5 GM/DL Amylase Level 67 25-125 U/L Lipase 30 8-78 U/L TSH [place] Testing 1.52 0.35-4.94 UIU/ML Serum Test, Qualitative NEGATIVE NEGATIVE Influenza Type A (RT-PCR) Not Detected Not Detecte Influenza Type B (RT-PCR) Not Detected Not Detecte SARS-CoV-2 RNA (RT-PCR) Not Detected Not Detecte My Orders Orders - JACQUI GREENE DO Ed Iv/Invasive Line Start (11/14/21 22:15) Monitor-Rhythm Ecg Trace Only (11/14/21:) Amylase (11/14/21:15) Cbc With Automated Diff (11/14/21:) Comprehensive Metabolic Panel (11/14/21:) Lipase (11/14/21:15) Magnesium (11/14/21:15) Thyroid Analyzer (11/14/21:) Ua Culture If Indicated (11/14/21:) Hcg,Qualitative Serum (11/14/21:) Covid 19 Inhouse Test (11/14/21:) Influenza A And B By Pcr (11/14/21:) Isolation Central Supply Req (11/14/21:) Ondansetron Injection (Zofran Injectio (11/14/21 22:30) Ed Iv/Invasive Line Start (11/14/21 22:23) Lactated Ringers (Lr 1000 Ml Iv Solution (11/14/21 22:30) Ct Abd/Pelv W (Appendicitis) (11/14/21 23:06) Acute Abd Series (11/14/21 23:06) Iohexol Injection (Omnipaque 350 Mg/Ml 1 (11/15/21 00:15) Received Contrast (Hold Metformin- Contr (11/15/21 00:15) Ns (Ivpb) (Sodium Chloride 0.9% Ivpb Bag (11/15/21 00:15) Medications Given in ED Current Medications Medications Dose Ordered Sig/Maya Route Start Time Stop Time Status Last Admin Dose Admin Iohexol 85 ml ONCE ONCE IV 11/15/21 00:15 11/15/21 00:16 DC 11/15/21 00:07 85 ML Lactated Ringer's 1,000 ml @ 0 mls/hr Q0M ONCE IV 11/14/21 22:30 11/14/21 22:31 DC 11/14/21 22:31 1,000 MLS/HR Ondansetron HCl 4 mg ONCE ONCE IVP 11/14/21 22:30 11/14/21 22:31 DC 11/14/21 22:31 4 MG Sodium Chloride 100 ml ONCE ONCE IV 11/15/21 00:15 11/15/21 00:16 DC 11/15/21 00:07 80 ML Vital Signs/I&O 11/14/21 21:55 Temp 36.8 Pulse 64 Resp 18 B/P (MAP) 133/64 (87) Pulse Ox 99 O2 Delivery Room Air Progress Progress Note : Progress Note UNEVENTFUL ER STAY NO COMPLAINTS OF ABDOMINAL PAIN DURING ER STAY Diagnostic Imaging Comments ABDOMEN XRAYS--NO ACUTE PROCESS, PENDING RADIOLOGIST REVIEW CT ABDOMEN/PELVIS--NORMAL APPENDIX. THICK FECULENT APPEARING SUCCUS MATERIAL IN MID AND LOWER SMALL BOWEL--CAN BE ASSOCIATED WITH BACTERIAL OVERGROWTH SYNDROME. STABLE HEPATIC CYSTS. --PER [facility] VIA FAX AT 0025 Reviewed: Reviewed by Me Departure Impression Primary Impression: Gastroenteritis Disposition: HOME, SELF-CARE Condition: Stable Departure-Patient Inst. Decision time for Depature: 00:30 Referrals: [facility] (PCP) Primary Care Physician HARRIET HOLLIS MD (Family) Primary Care Physician Patient Instructions: [id number] Add. Discharge Instructions: CLEAR LIQUIDS--WATER, BROTH, JELLO, GATORADE AFTER 24 HOURS IF YOU ARE FEELING BETTER, ADD BRATS DIET TO CLEAR LIQUIDS-- BANANAS, RICE, APPLESAUCE, TOAST, SALTINES FOLLOW UP WITH [facility] IN 2-3 DAYS IF NO BETTER, RETURN TO ER IF WORSE All discharge instructions reviewed with patient and/or family. Voiced understanding. Scripts Ondansetron (Ondansetron Odt) 4 Mg Tab.rapdis 4 MG PO Q4H for Nausea/Vomiting, #10 TAB Prov: JACQUI GREENE DO 11/15/21 Hyoscyamine Sulfate (Levsin-Sl) 0.125 Mg Tab.subl 0.25 MG SL Q4H, #15 TAB Prov: JACQUI GREENE DO 11/15/21 L. Acidophilus/Pectin, [place] (Acidophilus Capsule) 1 Each Capsule 2 EACH PO QID, #80 CAP Prov: JACQUI GREENE DO 11/15/21 JACQUI GREENE DO Nov 14, 2021 22:33
[2021-11-14 22:36] LABS: BILIRUBIN,URINE NEGATIVE (NEGATIVE); CLARITY,URINE CLEAR; COLOR,URINE YELLOW; GLUCOSE, URINE (UA) NEGATIVE (NEGATIVE); KETONES,URINE NEGATIVE (NEGATIVE); LEUKOCYTE ESTERASE ,URINE NEGATIVE (NEGATIVE); NITRITE,URINE NEGATIVE (NEGATIVE); PH,URINE 7.5 (5-9); PROTEIN,URINE NEGATIVE (NEGATIVE)
[2021-11-14 22:39] LABS: ALBUMIN 4.6 GM/DL (3.2-4.5)
[2021-11-14 22:40] LABS: CHLORIDE 104 MMOL/L (98-107); POTASSIUM 3.9 MMOL/L (3.6-5.0); SODIUM 140 MMOL/L (135-145)
[2021-11-14 22:41] LABS: AMYLASE 67 U/L (25-125); CALCIUM 10.1 MG/DL (8.5-10.1)
[2021-11-14 22:42] LABS: GLUCOSE 98 MG/DL (70-105); TOTAL PROTEIN 7.6 GM/DL (6.4-8.2)
[2021-11-14 22:43] LABS: CARBON DIOXIDE 24 MMOL/L (21-32)
[2021-11-14 22:44] LABS: BILIRUBIN,TOTAL 0.7 MG/DL (0.1-1.0)
[2021-11-14 22:45] LABS: ALKALINE PHOSPHATASE 57 U/L (40-136)
[2021-11-14 22:46] LABS: CREATININE SERUM 0.65 MG/DL (0.60-1.30); GFR ESTIMATED 111
[2021-11-14 22:47] LABS: BUN/CREATININE RATIO 17
[2021-11-14 22:49] LABS: ALANINE AMINOTRANSFERASE 9 U/L (0-55); MAGNESIUM 2.1 MG/DL (1.6-2.4)
[2021-11-14 22:50] LABS: LIPASE 30 U/L (8-78)
[2021-11-14 22:58] LABS: BACTERIA,URINE NEGATIVE /HPF; SQUAMOUS EPITHELIAL CELL,UR 0-2 /HPF
[2021-11-14 23:10] LABS: TSH (THYROID ANALYZER) 1.52 UIU/ML (0.35-4.94)
[2021-11-15] MEDS ORDERED: IOHEXOL 350 MG/ML 100 ML (OMNIPAQUE 350) VIAL IV ONE (00:15)
[2021-11-15] MEDS ORDERED: HOLD METFORMIN - RECEIVED CONTRAST 20 ML VIAL IV SCH (00:15)
[2021-11-15] MEDS ORDERED: NS 100 ML (IVPB) BAG IV ONE (00:15)
[2021-11-15] MEDS ORDERED: ONDA4TAB11 PO (00:34)
[2021-11-15] MEDS ORDERED: L. A1CAP11 PO (00:34)
[2021-11-15] MEDS ORDERED: HYOS0.1283 SL (00:34)
--- NOTE | 2021-11-15 06:39 | Diagnostic Imaging Report ---
PROCEDURE: CT abdomen and pelvis with contrast, rule out appendicitis. TECHNIQUE: Multiple contiguous axial images were obtained through the abdomen and pelvis after the administration of intravenous contrast. All CT scans use one or more of the following dose optimizing techniques: automated exposure control, MA and/or KvP adjustment based on patient size and exam type or iterative reconstruction. INDICATION: Right lower quadrant pain EXAMINATION: CT abdomen and pelvis with contrast 11/14/2021. COMPARISON: 07/17/2019 FINDINGS: Lung bases clear. Multiple cystic lesions seen throughout the liver, for the most part simple in appearance. There is a cleft or septation within the gallbladder versus an adjacent cyst in the liver. Spleen stable from previous imaging. Pancreas and adrenal glands normal. Kidneys unremarkable for acute abnormality. Appendix normal. Minimal free fluid pelvis likely physiologic. Incidentally noted is fecalization noted within the small bowel nonspecific but sometimes seen in bacterial overgrowth syndrome. No obstructive process is seen. There is no free air. There is no acute osseous abnormality. IMPRESSION: 1. Appendix normal. 2. Incidental findings as above including cystic changes in the liver stable from previous imaging. 3. Fecalization within the small bowel loops as noted above. Pertinent findings agree with the preliminary report. Dictated by: Dictated on workstation # [id number]
--- NOTE | 2021-11-15 07:21 | Diagnostic Imaging Report ---
INDICATION: Abdominal pain EXAMINATION: Abdominal series 11/14/2021 COMPARISON: 11/19/2018 FINDINGS: Chest unremarkable with no infiltrates or effusions. No free air seen beneath the diaphragm. There is scattered air and stool throughout the colon to the rectosigmoid. No dilated loops of bowel. There are findings of moderate constipation. There is contrast in the renal collecting system and urinary bladder. IMPRESSION: 1. Negative chest. 2. Nonobstructive bowel gas pattern with findings of constipation. Dictated by: Dictated on workstation # [id number]
== END 2021-11-15 00:53 | disposition home or self-care (01) ==
LOC: EDUNIT# 21:42 → ER 21:48
DX: K52.9 Noninfective gastroenteritis and colitis, unspecified (principal); F17.210 Nicotine dependence, cigarettes, uncomplicated; Z20.822 Contact with and (suspected) exposure to COVID-19
CPT/HCPCS: 36415; 74022; 74177; 80053; 81000; 82150; 83690; 83735; 84443; 84703; 85025; 87636; 93041

== ENCOUNTER 2023-03-16 05:42 | Outpatient (CLI) | payer OTHER ==
[~2023-03-16] VITALS: Ht 160 cm; Wt 68.0 kg
[~2023-03-16 05:42] MED LIST changes: +HYOS0.1283 SL; +L. A1CAP11 PO
[2023-03-18] MEDS ORDERED: ERGO1250 PO (13:06)
== END 2023-03-18 13:08 ==
LOC: PREOP 05:42
PROVIDERS: ATTEND Surgery
DX: Z01.818 Encounter for other preprocedural examination (principal)

== ENCOUNTER 2023-03-25 09:56 | Day surgery (SDC) | payer OTHER ==
[~2023-03-25] VITALS: Ht 160 cm; Wt 68.0 kg
[~2023-03-25 09:56] MED LIST changes: +ERGO1250 PO
[2023-03-25] MEDS ORDERED: LACTATED RINGERS 1,000 ML IV STA (10:05)
[2023-03-25] MEDS ORDERED: PROPOFOL INJECTION 50 ML IV ONE (10:56)
[2023-03-25] MEDS ORDERED: MIDAZOLAM 2 MG/2 ML (VERSED) VIAL ONE (10:56)
[2023-03-25 10:58] VITALS: BP 121/68
--- NOTE | 2023-03-25 10:58 | Progress Note-Pre Operative ---
Pre-Operative Progress Note Date of Available H&P: Mar 03, 2023 Date H&P Reviewed: Mar 25, 2023 Time H&P Reviewed: 10:55 History & Physical: H&P Reviewed, Patient Examed, No changes noted Pre-Operative Diagnosis: Screening KISHOR ERIC DO Mar 25, 2023 10:57
[2023-03-25 11:25] VITALS: BP 96/52
--- NOTE | 2023-03-25 11:25 | Progress Note-Post Operative ---
Post-Operative Progess Note Surgeon (s)/Web Press Roll Tender (s) Surgeon KISHOR ERIC DO Web Press Roll Tender: none Pre-Operative Diagnosis Screening Post-Operative Diagnosis Int hemorrhoids Procedure & Operative Findings Date of Procedure 03/25/23 Procedure Performed/Findings Colonoscopy PROCEDURE NOTE: After informed consent was obtained, the patient was brought to the endoscopy suite, placed in bed in left lateral decubitus position. She was administered IV sedation by the ACADEMIC AFFAIRS SPECIALIST who then monitored her vitals the entire time, heart rate, blood pressure and pulse ox and the scope was inserted, pushed all the way to about 150 cm and pushed into the cecum, took a picture of appendiceal orifice and noted the ileocecal valve. Then slowly withdrew the scope insufflating to look circumferentially at the hayes starting in the cecum, up the ascending colon to the hepatic flexure, then down the transverse colon, splenic flexure, into the descending colon down in the sigmoid and then into the rectal vault and retroflexed the scope. Took picture of the internal hemorrhoids. The patient tolerated the procedure. She was recovered in endoscopy suite. Recommended for repeat colonoscopy in 10 years. Anesthesia Type IV sedation by ACADEMIC AFFAIRS SPECIALIST Estimated Blood Loss Estimated blood loss (mL): none Specimens/Packing Specimens Removed none KISHOR ERIC DO Mar 25, 2023 11:25
--- NOTE | 2023-03-25 11:26 | Endoscopy Discharge Instruct ---
Endo Procedure/Findings Findings 1.: Internal Hemorrhoids Discharge Instructions - Activity: You might feel a little sleepy until tomorrow. This is due to the me dicine you received to relax you. Until tomorrow, you should: NOT drive a car, operate machinery or power tools. NOT drink any alcoholic beverages. NOT make any important decisions or sign importortant papers. Do not return to work until tomorrow, unless otherwise instructed. Resume previous activities tomorrow. Diet: Start by taking liquids. If you tolerate liquids, advance to solid food. 1.: Colonscopy in 10 years Notify Physician - If you experience excessive bleeding, unusual abdominal pain, fever, or chest pain, contact your doctor immediately. Follow-Up: Other Follow up in my office in one week KISHOR ERIC DO Mar 25, 2023 11:26
[2023-03-25 11:30] VITALS: BP 89/52
[2023-03-25 11:35] VITALS: BP 85/49
[2023-03-25 11:43] VITALS: BP 85/53
[2023-03-25 12:14] VITALS: BP 85/53
--- NOTE | 2023-03-25 12:30 | Anesthesia-General Post-Op ---
MAC Patient Condition Mental Status/LOC: Same as Preop Cardiovascular: Satisfactory Nausea/Vomiting: Absent Respiratory: Satisfactory Pain: Controlled Complications: Absent Post Op Complications Complications None Follow Up Care/Instructions Patient Instructions None needed. Anesthesiology Discharge Order Discharge Order Patient is doing well, no complaints, stable vital signs, no apparent adverse anesthesia problems. No complications reported per nursing. MICH STACY CRNA Mar 25, 2023 12:30
== END 2023-03-25 12:38 | disposition home or self-care (01) ==
LOC: ENDO 09:56
PROVIDERS: ATTEND Surgery
DX: Z12.11 Encounter for screening for malignant neoplasm of colon (principal); K64.8 Other hemorrhoids; F17.210 Nicotine dependence, cigarettes, uncomplicated; K21.9 Gastro-esophageal reflux disease without esophagitis; E66.9 Obesity, unspecified; Z68.26 Body mass index [BMI] 26.0-26.9, adult